=== PATIENT | male | born 1965 | race Two or more races ===

== ENCOUNTER 2018-08-28 10:13 | Inpatient (IN) | payer MEDICAID ==
[~2018-08-28] VITALS: Ht 177.8 cm; Wt 74.8 kg
--- NOTE | 2018-08-28 10:13 | NUR ---
BIB SELF W C/O DIZZINESZS SINCE THIS AM, +NAUSEA, NO VOMITING. TO ER BED 7, HOOKED TO MONITOR, AWAITING MD KINGSTON.
--- NOTE | 2018-08-28 10:38 | NUR ---
DR SMALL AT BEDSIDE
[2018-08-28 10:49] LABS: BASOPHILS % (AUTO) 0.7 % (0.0-2.0); EOSINOPHILS % (AUTO) 2.4 % (0.0-6.0); HEMATOCRIT 44 % (39-51); HEMOGLOBIN 14.8 g/dL (13.5-17.5); LYMPHOCYTES # (AUTO) 1.3 /CMM (0.8-4.8); LYMPHOCYTES % (AUTO) 17.7 % (20.0-44.0); MEAN CORPUSCULAR HGB CONC 33 g/dl (31.0-36.0); MEAN CORPUSCULAR VOLUME 90 fL (80-96); MONOCYTES # (AUTO) 0.7 /CMM (0.1-1.30); MONOCYTES % (AUTO) 8.7 % (2.0-12.0); NEUTROPHILS # (AUTO) 5.3 /CMM (1.8-8.9); NEUTROPHILS % (AUTO) 70.5 % (43.0-81.0); PLATELET COUNT (AUTO) 201 /CMM (150-450); RED BLOOD CELL COUNT(AUTO) 4.94 MIL/uL (4.5-6.0); WHITE BLOOD COUNT (AUTO) 7.5 K/uL (4.3-11.0)
[2018-08-28 10:54] LABS: CALCIUM, SERUM 8.8 mg/dL (8.5-10.1); CREATININE 2.1 mg/dL (0.6-1.3); POTASSIUM 3.9 mmol/L (3.5-5.1)
--- NOTE | 2018-08-28 10:54 | NUR ---
DIRECTOR OF TRAINING AT BEDSIDE
[2018-08-28] MEDS ORDERED: IV NS 0.9% 500 ML BAG IV ONE (11:00)
[2018-08-28 11:07] LABS: ALBUMIN 3.5 g/dL (3.4-5.0); BILIRUBIN,DIRECT 0.1 mg/dL (0.0-0.2); BILIRUBIN,TOTAL 0.5 mg/dL (0.2-1.0); TOTAL PROTEIN, SERUM 7.7 g/dL (6.4-8.2)
--- NOTE | 2018-08-28 11:57 | NUR ---
TELE 120-1
[2018-08-28 12:00] VITALS: BP 160/117
[2018-08-28 12:02] LABS: APPEARANCE,URINE Clear (CLEAR); BILIRUBIN,URINE Negative (NEGATIVE); BLOOD, URINE Negative Ery/uL (NEGATIVE); COLOR,URINE Yellow (YELLOW); KETONES,URINE Negative (NEGATIVE); LEUKOCYTE ESTERASE ,URINE Negative (NEGATIVE); NITRITE, URINE Negative (NEGATIVE); PH,URINE 6.5 (5.0-8.0); PROTEIN,URINE 30 mg/dl (NEGATIVE); UGLUCOSE Negative (NEGATIVE); UROBILINOGEN,URINE 0.2 EU/dL (0.2)
--- NOTE | 2018-08-28 12:04 | NUR ---
Report given to GALI August for garry TELE 120-1
[2018-08-28 12:09] LABS: BACTERIA,URINE None seen /HPF (None Seen); SQUAMOUS EPITHELIAL CELL,UR Rare /HPF (None Seen); WBC,URINE 0-2 /HPF (0-3)
[2018-08-28] MEDS ORDERED: CARV12.52 PO (12:21)
[2018-08-28] MEDS ORDERED: BENA20TA9 PO (12:21)
[2018-08-28] MEDS ORDERED: FURO-145 PO (12:21)
[2018-08-28] MEDS ORDERED: APIX5TAB PO (12:21)
[2018-08-28] MEDS ORDERED: ALLO100T PO (12:21)
[2018-08-28] MEDS ORDERED: ASPI-1169 PO (12:21)
[2018-08-28 13:00] VITALS: BP 160/117
[2018-08-28] MEDS ORDERED: MAG HYDROX/AL HYDROX/SIMETH 30 ML UDC PO PRN (13:30)
[2018-08-28] MEDS ORDERED: Z GUARD REMEDY 2 OZ OINT TP PRN (13:30)
[2018-08-28] MEDS ORDERED: ONDANSETRON HCL/PF 4 MG/2 ML VIAL IVP PRN (13:30)
[2018-08-28] MEDS ORDERED: MAGNESIUM HYDROXIDE 30 ML UDC PO PRN (13:30)
[2018-08-28] MEDS ORDERED: ACETAMINOPHEN 325 MG TABLET PO PRN (13:30)
[2018-08-28] MEDS: FUROSEMIDE 40 MG TABLET PO SCH (13:39)
[2018-08-28] MEDS: BENAZEPRIL HCL 10 MG TABLET PO SCH (13:39)
[2018-08-28] MEDS: CARVEDILOL 12.5 MG TABLET PO SCH ×2 (13:39→17:08)
[2018-08-28 13:45] LABS: PHOSPHORUS 4.4 mg/dL (2.5-4.9)
[2018-08-28] MEDS: HYDROCODONE/APAP 5/325MG 1 EACH TABLET PO PRN ×2 (14:09→20:32)
[2018-08-28 14:16] LABS: THYROID STIMULATING HORMONE 6.734 uIU/mL (0.358-3.74)
[2018-08-28 16:00] VITALS: BP 161/105
[2018-08-28] MEDS: APIXABAN 5 MG TABLET PO SCH (16:47)
--- NOTE | 2018-08-28 16:47 | NUR ---
BASKETBALL SCOUT NOTE PATIENT TRANSFERED FROM THE EMERGENCY DEPARTMENT. ALERT AND ORIENTED X4. IV PATENT AND INTACT. PATIENT NOTED HE HAS AN IMPLANTED DEFIBRILATOR. BED IN LOW POSITION SAFETY MEASURES IN PLACE. BELONGINGS CHECKED BY SUGAR MILL WORKER. MD ORDERED MEDICATION, BLOOD PRESSURE NOTED TO BE HIGH. CONTINUE TO MONITOR.
[2018-08-28 17:00] VITALS: BP 143/94
[2018-08-28] MEDS ORDERED: hydrALAZINE HCL IV 20 MG VIAL IV PRN (18:30)
[2018-08-28 20:00] VITALS: BP 120/79
--- NOTE | 2018-08-28 20:00 | NUR ---
TELE/RN NOTES: RECEIVED PT. IN BED W/ SON BY BEDSIDE. A/O X 4. DENIES ANY C/O CHEST PAIN OR SOB AT PRESENT. ON TELE MONITOR W/ AFLUTTER 70. CONTINENT OF B/B. LFA G 20 PATENT AND INTACT W/ NO S/S OF INFECTION/INFILTRATION NOTED. C/O PAIN W/ PRN MEDS GIVEN W/ GOOD RELIEF. WILL CONTINUE TO MONITOR.
[2018-08-28] MEDS: SIMVASTATIN 40 MG TABLET PO SCH (21:26)
[2018-08-28] MEDS: ZOLPIDEM TARTRATE 5 MG TABLET PO PRN (21:30)
[2018-08-29] VITALS (7 sets, daily range): BP systolic 103–144; BP diastolic 70–94
[2018-08-29 06:47] LABS: BASOPHILS % (AUTO) 0.4 % (0.0-2.0); EOSINOPHILS % (AUTO) 3.1 % (0.0-6.0); HEMATOCRIT 43 % (39-51); HEMOGLOBIN 14.2 g/dL (13.5-17.5); LYMPHOCYTES # (AUTO) 1.9 /CMM (0.8-4.8); LYMPHOCYTES % (AUTO) 30.3 % (20.0-44.0); MEAN CORPUSCULAR HGB CONC 33 g/dl (31.0-36.0); MEAN CORPUSCULAR VOLUME 92 fL (80-96); MONOCYTES # (AUTO) 0.8 /CMM (0.1-1.30); MONOCYTES % (AUTO) 13.4 % (2.0-12.0); NEUTROPHILS # (AUTO) 3.3 /CMM (1.8-8.9); NEUTROPHILS % (AUTO) 52.8 % (43.0-81.0); PLATELET COUNT (AUTO) 206 /CMM (150-450); RED BLOOD CELL COUNT(AUTO) 4.71 MIL/uL (4.5-6.0); WHITE BLOOD COUNT (AUTO) 6.3 K/uL (4.3-11.0)
[2018-08-29 06:59] LABS: ALBUMIN 3.2 g/dL (3.4-5.0); BILIRUBIN,TOTAL 0.3 mg/dL (0.2-1.0); CALCIUM, SERUM 8.6 mg/dL (8.5-10.1); CREATININE 2.1 mg/dL (0.6-1.3); MAGNESIUM 2.1 mg/dL (1.8-2.4); PHOSPHORUS 5.1 mg/dL (2.5-4.9); POTASSIUM 3.9 mmol/L (3.5-5.1); TOTAL PROTEIN, SERUM 7.3 g/dL (6.4-8.2)
[2018-08-29 07:05] LABS: THYROID STIMULATING HORMONE 10.83 uIU/mL (0.358-3.74)
--- NOTE | 2018-08-29 07:30 | NUR ---
TELE/RN NOTES: LAB CALLED W/ TRENDING TROPONIN 0.9666/ 0.550 . REPORT GIVEN TO AM NURSE FOR MACEY.
[2018-08-29] MEDS ORDERED: ASPIRIN EC 81 MG TABLET.DR PO SCH (09:00)
[2018-08-29] MEDS: FUROSEMIDE 40 MG TABLET PO SCH (09:13)
[2018-08-29] MEDS: CARVEDILOL 12.5 MG TABLET PO SCH ×2 (09:14→17:31)
[2018-08-29] MEDS: BENAZEPRIL HCL 10 MG TABLET PO SCH (09:14)
[2018-08-29] MEDS: HYDROCODONE/APAP 5/325MG 1 EACH TABLET PO PRN (09:43)
--- NOTE | 2018-08-29 09:45 | NUR ---
VE TEACHER NOTES DR ORNELAS AWARE OF TROPONIN LEVEL, NO NEW ORDERS MADE AT THIS TIME.
[2018-08-29] MEDS: APIXABAN 5 MG TABLET PO SCH ×2 (10:00→17:12)
--- NOTE | 2018-08-29 10:00 | NUR ---
SEO PROFESSIONAL NOTES SEEN AND EVALUATED WITH DR LEBRON, CLARIFIED ASPIRIN AND ELIQUIS ORDERS SAID MAY ADMINISTER BOTH MEDICATIONS.
--- NOTE | 2018-08-29 19:00 | NUR ---
LICENSED PHYSICAL THERAPY ASSISTANT NOTES PATIENT IN BED ALERT ORIENTED X 4. NO ACUTE DISTRESS NOTED. BREATHING UNLABORED. NO SOB NOTED. DENIED ANY PAIN. IV ACCESS PATENT AND INTACT, NO REDNESS NO SWELLING NOTED. DUE MEDICATIONS GIVEN, NO ASE NOTED. NEEDS ATTENDED AND ANTICIPATED. KEPT CLEAN DRY AND COMFORTABLE. SAFETY MEASURES IN PLACE. CALL LIGHT WITHIN REACH.ENDORSED TO NIGHT NURSE FOR CONTINUITY OF CARE.
[2018-08-29] MEDS: SIMVASTATIN 40 MG TABLET PO SCH (22:07)
[2018-08-29] MEDS: ZOLPIDEM TARTRATE 5 MG TABLET PO PRN (22:22)
[2018-08-30 01:00] VITALS: BP 127/76
--- NOTE | 2018-08-30 06:54 | NUR ---
TELE/RN NOTES: ENDORSED PT. IN BED W/ SON BY BEDSIDE. A/O X 4. DENIES ANY C/O CHEST PAIN OR SOB AT PRESENT. ON TELE MONITOR W/ AFLUTTER 70'S. CONTINENT OF B/B. LFA G 20 PATENT AND INTACT W/ NO S/S OF INFECTION/INFILTRATION NOTED. C/O PAIN W/ PRN MEDS GIVEN W/ GOOD RELIEF. WILL CONTINUE TO MONITOR.
--- NOTE | 2018-08-30 07:20 | NUR ---
RN NOTES RECEIVED PATIENT AWAKE RESTING IN BED COMFORTABLY , ABLE TO MAKE NEEDS KNOWN. RESPIRATIONS EVEN AND UNLABORED, DENIES ANY PAIN OR DISCOMFORT AT THIS TIME. IV ACCESS PATENT AND INTACT NO REDNESS OR INFILTRATION NOTED. KEPT CLEAN DRY AND COMFORTABLE, CALL LIGHT WITHIN EASY REACH, WILL CONTINUE TO MONITOR
[2018-08-30 07:22] LABS: CALCIUM, SERUM 8.6 mg/dL (8.5-10.1); CREATININE 2.2 mg/dL (0.6-1.3); MAGNESIUM 2.3 mg/dL (1.8-2.4); POTASSIUM 3.8 mmol/L (3.5-5.1)
[2018-08-30 07:29] LABS: BASOPHILS # (AUTO) 0.1 /CMM (0.0-0.2); BASOPHILS % (AUTO) 0.8 % (0.0-2.0); EOSINOPHILS % (AUTO) 3.5 % (0.0-6.0); HEMATOCRIT 43 % (39-51); HEMOGLOBIN 14.5 g/dL (13.5-17.5); LYMPHOCYTES # (AUTO) 1.8 /CMM (0.8-4.8); LYMPHOCYTES % (AUTO) 25.1 % (20.0-44.0); MEAN CORPUSCULAR HGB CONC 33 g/dl (31.0-36.0); MEAN CORPUSCULAR VOLUME 91 fL (80-96); NEUTROPHILS # (AUTO) 4.2 /CMM (1.8-8.9); NEUTROPHILS % (AUTO) 57.6 % (43.0-81.0); PLATELET COUNT (AUTO) 212 /CMM (150-450); RED BLOOD CELL COUNT(AUTO) 4.79 MIL/uL (4.5-6.0); WHITE BLOOD COUNT (AUTO) 7.3 K/uL (4.3-11.0)
[2018-08-30 08:00] VITALS: BP 159/77
[2018-08-30] MEDS: CARVEDILOL 12.5 MG TABLET PO SCH ×2 (08:25→17:04)
[2018-08-30] MEDS: FUROSEMIDE 40 MG TABLET PO SCH (08:25)
[2018-08-30] MEDS: BENAZEPRIL HCL 10 MG TABLET PO SCH (08:26)
[2018-08-30] MEDS: APIXABAN 5 MG TABLET PO SCH ×2 (08:27→17:06)
[2018-08-30 09:00] VITALS: BP 159/77
[2018-08-30 10:19] LABS: *SPE A/G RATIO 0.9 (0.7-1.7); *SPE ALBUMIN 3.2 g/dL (2.9-4.4); *SPE ALPHA-1-GLOBULIN 0.2 g/dL (0.0-0.4); *SPE ALPHA-2-GLOBULIN 0.9 g/dL (0.4-1.0); *SPE BETA GLOBULIN 1.3 g/dL (0.7-1.3); *SPE GLOBULIN, TOTAL 3.5 g/dL (2.2-3.9); *SPE M-SPIKE Not Observed g/dL (Not Observed)
[2018-08-30] MEDS ORDERED: SIMV40TA5 PO (10:54)
[2018-08-30] MEDS ORDERED: FURO40TA5 PO (10:54)
[2018-08-30 13:14] LABS: PTH, INTACT 171 pg/mL (15-65)
[2018-08-30 16:00] VITALS: BP 120/76
--- NOTE | 2018-08-30 16:34 | NUR ---
RN NOTES PAGED DR. CHATTERJEE SERVICE AND NOTIFIED DR. ORNELAS OF CT SCAN RESULTS. NO ANSWER FROM DR. CHATTERJEE , DR ORNELAS WILL NOTIFY RN IF OKAY TO DC PT
[2018-08-30 17:00] VITALS: BP 120/76
[2018-08-30 17:04] VITALS: BP 120/76
[2018-08-30] MEDS: HYDROCODONE/APAP 5/325MG 1 EACH TABLET PO PRN (17:05)
--- NOTE | 2018-08-30 17:34 | NUR ---
RN NOTES PER DR. ORNELAS PT MAY BE DISCHARGED WITH IMAGES OF SCAN, WILL CONTINUE TO ASSIST WITH DC PROCESS
--- NOTE | 2018-08-30 18:59 | NUR ---
RN NOTES PATIENT AWAKE RESTING IN BED COMFORTABLY , ABLE TO MAKE NEEDS KNOWN. RESPIRATIONS EVEN AND UNLABORED, DENIES ANY PAIN OR DISCOMFORT AT THIS TIME. IV ACCESS REMOVED WITH NO ASE NOTED PATIENT GOING HOME AND DISCHARGED. ID BAND REMOVED, NO PICTURES OF SKIN NEEDED. KEPT CLEAN DRY AND COMFORTABLE, CALL LIGHT WITHIN EASY REACH, WILL CONTINUE TO MONITOR. ALL DISCHARGE INSTRUCTIONS AND PAPERWORK COMPLETED WITH VERBAL UNDERSTANDING NOTED. PT AWAITING FAMILY TO PICK HIM UP WILL ENDORSE TO NEXT SHIFT FOR CONTINUITY OF CARE AND ASSISTANCE WITH DISCHARGE PROCESS
--- NOTE | 2018-08-30 19:26 | NUR ---
MS RN NOTES PT D/C STABLE WITH DAUGHTER VIA PRIVATE CAR ACCOMPANIED BY RN.
== END 2018-08-30 19:26 | disposition home or self-care (01) | DRG 469 ==
LOC: ER 10:14 → TELE1 12:16 → MEDSG1 08-29 22:00
PROVIDERS: ADMIT Student in an Organized Health Care Education/Training Program; ATTEND Student in an Organized Health Care Education/Training Program
DX: N17.0 Acute kidney failure with tubular necrosis (principal); I21.A1 Myocardial infarction type 2; I42.9 Cardiomyopathy, unspecified; I13.0 Hypertensive heart and chronic kidney disease with heart failure and stage 1 through stage 4 chronic kidney disease, or unspecified chronic kidney disease; I48.91 Unspecified atrial fibrillation; Z86.73 Personal history of transient ischemic attack (TIA), and cerebral infarction without residual deficits; E78.5 Hyperlipidemia, unspecified; I25.10 Atherosclerotic heart disease of native coronary artery without angina pectoris; E03.9 Hypothyroidism, unspecified; I50.22 Chronic systolic (congestive) heart failure; Z87.442 Personal history of urinary calculi; Z91.14 Patient's other noncompliance with medication regimen; N28.1 Cyst of kidney, acquired; N21.0 Calculus in bladder; F17.210 Nicotine dependence, cigarettes, uncomplicated; Z79.01 Long term (current) use of anticoagulants; Z95.810 Presence of automatic (implantable) cardiac defibrillator; N18.9 Chronic kidney disease, unspecified; Z82.49 Family history of ischemic heart disease and other diseases of the circulatory system; N13.30 Unspecified hydronephrosis; N20.1 Calculus of ureter
CPT/HCPCS: 36415; 71045-TC; 76770-TC; 80048-TC; 80053-TC; 80061-TC; 80076-TC; 81000-TC; 82550-TC; 83735-TC; 83880; 83970; 84100-TC; 84155; 84165; 84439-TC; 84443-TC; 84484-TC; 85025-TC; 85730-TC; 87081-TC; 93307-TC; A4349; G0378; J7040

== ENCOUNTER 2019-01-08 15:12 | Inpatient (IN) | payer MEDICAID ==
[~2019-01-08] VITALS: Ht 180.3 cm; Wt 68.0 kg
[~2019-01-08 15:12] MED LIST: ALLO100T PO; APIX5TAB PO; APIXABAN 5 MG TABLET PO ONE; ASPI-1169 PO; BENA20TA9 PO; CARV12.52 PO; FURO-145 PO; FURO40TA5 PO; SIMV40TA5 PO
--- NOTE | 2019-01-08 16:30 | NUR ---
WORSENING L FOOT PAIN/SWELLING SINCE SUNDAY. CONCERN ABOUT BLOOD CLOT RAN OUT OF ELEQUIS SINCE SUNDAY. PT AAOX4, VSS. RR EVEN & UNLABORED. DENIES CP, SOB, DIZZINESS, N/V AT THIS TIME. AWAITING EVAL BY ERMD/PA & WILL CONT TO MONITOR.
[2019-01-08 17:47] LABS: BASOPHILS % (AUTO) 0.4 % (0.0-2.0); EOSINOPHILS % (AUTO) 0.7 % (0.0-6.0); HEMATOCRIT 45 % (39-51); HEMOGLOBIN 14.8 g/dL (13.5-17.5); LYMPHOCYTES # (AUTO) 0.8 /CMM (0.8-4.8); LYMPHOCYTES % (AUTO) 9.2 % (20.0-44.0); MEAN CORPUSCULAR HGB CONC 33 g/dl (31.0-36.0); MEAN CORPUSCULAR VOLUME 90 fL (80-96); MONOCYTES # (AUTO) 0.7 /CMM (0.1-1.30); MONOCYTES % (AUTO) 8.3 % (2.0-12.0); NEUTROPHILS % (AUTO) 81.4 % (43.0-81.0); PLATELET COUNT (AUTO) 345 /CMM (150-450); RED BLOOD CELL COUNT(AUTO) 5.02 MIL/uL (4.5-6.0); WHITE BLOOD COUNT (AUTO) 8.5 K/uL (4.3-11.0)
[2019-01-08 17:57] LABS: CALCIUM, SERUM 9.5 mg/dL (8.5-10.1); CREATININE 1.9 mg/dL (0.6-1.3); POTASSIUM 3.5 mmol/L (3.5-5.1)
[2019-01-08 18:10] LABS: ALBUMIN 2.9 g/dL (3.4-5.0); BILIRUBIN,DIRECT 0.3 mg/dL (0.0-0.2); TOTAL PROTEIN, SERUM 8.6 g/dL (6.4-8.2)
[2019-01-08] MEDS ORDERED: MORPHINE SULFATE INJ 2 MG/ML DISP.SYRIN IV ONE (19:00)
[2019-01-08] MEDS ORDERED: ONDANSETRON HCL/PF 4 MG/2 ML VIAL IVP ONE (19:00)
[2019-01-08] MEDS ORDERED: AZTREONAM 1 G in IV NS 0.9% 100 ML IV ONE (19:00)
[2019-01-08] MEDS ORDERED: VANCOMYCIN 1 GM in IV D5W 250 ML IV ONE (19:00)
[2019-01-08] MEDS ORDERED: ONDANSETRON HCL/PF 4 MG/2 ML VIAL ONE (19:23)
[2019-01-08] MEDS ORDERED: MORPHINE SULFATE INJ 4 MG/ML DISP.SYRIN ONE (19:23)
--- NOTE | 2019-01-08 19:28 | NUR ---
MEDICATED FOR LT FOOT PAIN, PER ERIC BENNETT'S ORDER. DENIES CP, SOB, N/V AT THIS TIME. PLACED ON DRIVER/REFUSE COLLECTOR, SR W/ NO ECTOPY NOTED. WILL CONT TO MONITOR.
--- NOTE | 2019-01-08 19:48 | NUR ---
CALLED [facility]ERON TORRES TELE BED
--- NOTE | 2019-01-08 19:59 | NUR ---
BED ASSIGNMENT: 325-2 TELE
--- NOTE | 2019-01-08 20:13 | NUR ---
REPORT CALLED TO TUBE REBUILDERGALI ANNE. WILL TRANSPORT PT VIA ACLS PROTOCOL.
[2019-01-08] MEDS ORDERED: Z GUARD REMEDY 2 OZ OINT TP PRN (20:30)
[2019-01-08] MEDS ORDERED: MAGNESIUM HYDROXIDE 30 ML UDC PO PRN (20:30)
[2019-01-08] MEDS ORDERED: ONDANSETRON HCL/PF 4 MG/2 ML VIAL IVP PRN (20:30)
[2019-01-08] MEDS ORDERED: MAG HYDROX/AL HYDROX/SIMETH 30 ML UDC PO PRN (20:30)
[2019-01-08] MEDS ORDERED: ACETAMINOPHEN 325 MG TABLET PO PRN (20:30)
[2019-01-08 20:35] VITALS: BP 144/101
--- NOTE | 2019-01-08 20:35 | NUR ---
RECEIVED PATIENT FROM ER FOR LEFT FOOT CELLULITIS. AO X 3, ABLE TO MAKE NEEDS KNOWN. NO ACUTE DISTRESS NOTED. 5/10 LEFT FOOT PAIN. TELE READING AFIB HR 99. IV SITE PATENT, INTACT; FLUSHED. SAFETY REMINDERS GIVEN. ON LOW BED WITH BILATERAL UPPER SIDE RAILS UP. CALL JUNG WITHIN EASY REACH. WILL CONTINUE TO MONITOR.
[2019-01-08 20:45] VITALS: BP 144/101
[2019-01-08] MEDS: HYDROCODONE/APAP 5/325MG 1 EACH TABLET PO PRN (22:12)
--- NOTE | 2019-01-08 23:05 | NUR ---
PER DR. NOLAN, ORDER ELIQUIS 5 MG PO X 1 TONIGHT; NOTED AND CARRIED OUT.
--- NOTE | 2019-01-08 23:15 | NUR ---
DR. NOLAN SAW PATIENT; GAVE ORDER FOR MORPHINE 2 MG IV Q 4 HOURS PRN; NOTED AND CARRIED OUT. PATIENT MADE AWARE.
[2019-01-08] MEDS ORDERED: APIXABAN 5 MG TABLET PO ONE (23:45)
[2019-01-09] VITALS (7 sets, daily range): BP systolic 101–152; BP diastolic 61–83
[2019-01-09] MEDS ORDERED: APIXABAN 5 MG TABLET ONE (00:20)
[2019-01-09] MEDS: MORPHINE SULFATE INJ 2 MG/ML DISP.SYRIN IV PRN ×6 (00:21→22:22)
[2019-01-09] MEDS ORDERED: CLINDAMYCIN IV RTU IN D5W 900 MG/50 ML PIGGYBACK IV SCH ×2 (01:00→13:00)
[2019-01-09] MEDS ORDERED: COLCHICINE 0.6 MG TABLET PO PRN (01:00)
[2019-01-09] MEDS ORDERED: CLINDAMYCIN 900 MG/6 ML VIAL ONE (01:40)
[2019-01-09] MEDS: FUROSEMIDE 40 MG/4 ML VIAL IV SCH ×2 (01:46→09:13)
--- NOTE | 2019-01-09 04:57 | NUR ---
ELIQUIS AT 01/08 0000 WAS REORDERED BY PHARMACY FOR 01/08 AT 2345. ELIQUIS 01/08 2345 WAS GIVEN. ELIQUIS 01/08 0000 IS A DUPLICATE; NOT GIVEN.
--- NOTE | 2019-01-09 06:00 | NUR ---
PATIENT ASLEEP, EASILY AROUSABLE. RESPIRATIONS EVEN. NO SIGNS OF PAIN NOTED. DUE MEDS GIVEN WITH NO ASE NOTED. NEEDS ATTENDED. KEPT CLEAN, DRY, AND COMFORTABLE. SAFETY PRECAUTIONS AND COMFORT MEASURES IN PLACE. WILL GIVE REPORT TO TO DAY SHIFT FOR CONTINUITY OF CARE.
[2019-01-09 06:53] LABS: BASOPHILS % (AUTO) 0.6 % (0.0-2.0); EOSINOPHILS % (AUTO) 2.9 % (0.0-6.0); HEMATOCRIT 38 % (39-51); HEMOGLOBIN 12.8 g/dL (13.5-17.5); LYMPHOCYTES # (AUTO) 1.1 /CMM (0.8-4.8); LYMPHOCYTES % (AUTO) 16.8 % (20.0-44.0); MEAN CORPUSCULAR HGB CONC 34 g/dl (31.0-36.0); MEAN CORPUSCULAR VOLUME 88 fL (80-96); MONOCYTES # (AUTO) 0.9 /CMM (0.1-1.30); MONOCYTES % (AUTO) 13.4 % (2.0-12.0); NEUTROPHILS # (AUTO) 4.4 /CMM (1.8-8.9); NEUTROPHILS % (AUTO) 66.3 % (43.0-81.0); PLATELET COUNT (AUTO) 314 /CMM (150-450); RED BLOOD CELL COUNT(AUTO) 4.32 MIL/uL (4.5-6.0); WHITE BLOOD COUNT (AUTO) 6.7 K/uL (4.3-11.0)
[2019-01-09 07:13] LABS: CALCIUM, SERUM 8.4 mg/dL (8.5-10.1); CREATININE 1.8 mg/dL (0.6-1.3); MAGNESIUM 2.1 mg/dL (1.8-2.4); PHOSPHORUS 4.3 mg/dL (2.5-4.9); POTASSIUM 3.6 mmol/L (3.5-5.1)
[2019-01-09] MEDS: HYDROCODONE/APAP 5/325MG 1 EACH TABLET PO PRN ×3 (08:37→19:56)
[2019-01-09] MEDS: ALLOPURINOL 100 MG TABLET PO SCH (09:13)
[2019-01-09] MEDS: ASPIRIN 81 MG TAB.CHEW PO SCH (09:13)
[2019-01-09] MEDS: APIXABAN 5 MG TABLET PO SCH ×2 (09:14→18:19)
[2019-01-09] MEDS: CARVEDILOL 12.5 MG TABLET PO SCH ×2 (09:20→17:00)
--- NOTE | 2019-01-09 10:30 | NUR ---
DR. MCKEON AND DR. HDZ IN TO SEE PT.DR. HDZ NOTED SWELLING LT. KNEE.PT. STATES MORE PAIN TODAY.
[2019-01-09] MEDS: CLINDAMYCIN 900 MG in IV D5W 50 ML IV SCH ×2 (14:11→21:37)
[2019-01-09] MEDS: BENAZEPRIL HCL 20 MG TABLET PO SCH (14:32)
--- NOTE | 2019-01-09 15:56 | NUR ---
THUS FAR PT HAS HAD 2 NORCO TABS AND 2 MORPHINE INJECTIONS,FOR LUPILLO. FOOT PAIN AND LT. KNEE PAIN.
[2019-01-09] MEDS: INDOMETHACIN 25 MG CAPSULE PO SCH (18:19)
--- NOTE | 2019-01-09 18:30 | NUR ---
MEDICATED AGAIN WITH MORPHINE.
--- NOTE | 2019-01-09 19:30 | NUR ---
RECEIVED PATIENT IN BED AWAKE. AO X 3, ABLE TO MAKE NEEDS KNOWN. NO ACUTE DISTRESS NOTED. MONITORED FOR PAIN. IV SITE PATENT, INTACT; FLUSHED. SAFETY REMINDERS GIVEN. ON LOW BED WITH BILATERAL UPPER SIDE RAILS UP. CALL JUNG WITHIN EASY REACH. WILL CONTINUE TO MONITOR.
--- NOTE | 2019-01-09 20:55 | NUR ---
Met with patient at bedside. States he lives with roommates. He is usually ambulatory and independent with adl's but recently he is using a walker due to leg pain. Denies having DME, he is requesting a walker to aid with ambulation when discharge. His pcp is at [facility]. Has a friend that will provide ride when discharge. Addendum: 01/09/19 at 2054 by CHIDI ZEPEDA RN Amended: Links added.
[2019-01-10] MEDS: ZOLPIDEM TARTRATE 5 MG TABLET PO PRN ×2 (01:14→21:16)
[2019-01-10] MEDS: CLINDAMYCIN 900 MG in IV D5W 50 ML IV SCH ×3 (05:34→20:57)
--- NOTE | 2019-01-10 06:25 | NUR ---
PATIENT ASLEEP, EASILY AROUSABLE. RESPIRATIONS EVEN. NO SIGNS OF PAIN NOTED. SLEPT WELL AFTER AMBIEN ADMINISTRATION. DUE MEDS GIVEN WITH NO ASE NOTED. NEEDS ATTENDED. SAFETY PRECAUTIONS AND COMFORT MEASURES IN PLACE. WILL GIVE REPORT TO TO DAY SHIFT FOR CONTINUITY OF CARE.
[2019-01-10 07:12] LABS: BASOPHILS % (AUTO) 0.7 % (0.0-2.0); EOSINOPHILS % (AUTO) 5.9 % (0.0-6.0); HEMATOCRIT 35 % (39-51); HEMOGLOBIN 11.7 g/dL (13.5-17.5); LYMPHOCYTES # (AUTO) 1.2 /CMM (0.8-4.8); MEAN CORPUSCULAR HGB CONC 33 g/dl (31.0-36.0); MEAN CORPUSCULAR VOLUME 89 fL (80-96); MONOCYTES # (AUTO) 0.6 /CMM (0.1-1.30); MONOCYTES % (AUTO) 11.7 % (2.0-12.0); NEUTROPHILS # (AUTO) 2.8 /CMM (1.8-8.9); NEUTROPHILS % (AUTO) 56.7 % (43.0-81.0); PLATELET COUNT (AUTO) 328 /CMM (150-450); RED BLOOD CELL COUNT(AUTO) 3.93 MIL/uL (4.5-6.0); WHITE BLOOD COUNT (AUTO) 4.9 K/uL (4.3-11.0)
[2019-01-10 07:23] LABS: ALBUMIN 2.1 g/dL (3.4-5.0); BILIRUBIN,TOTAL 0.3 mg/dL (0.2-1.0); CALCIUM, SERUM 8.5 mg/dL (8.5-10.1); CREATININE 2.1 mg/dL (0.6-1.3); MAGNESIUM 2.2 mg/dL (1.8-2.4); PHOSPHORUS 5.2 mg/dL (2.5-4.9); POTASSIUM 3.3 mmol/L (3.5-5.1); TOTAL PROTEIN, SERUM 6.8 g/dL (6.4-8.2)
--- NOTE | 2019-01-10 07:27 | NUR ---
RN MS OPENING NOTES Received patient on room air, no sob noted, patient denies pain at this time. Patient remains a/o x4. NO IVF at this time, bed at the lowest setting, call light within reach.
[2019-01-10 08:00] VITALS: BP 115/75
[2019-01-10 08:10] LABS: CREATININE, URINE 152.6 MG/DL (30.0-125.0)
[2019-01-10 08:16] LABS: APPEARANCE,URINE CLEAR (CLEAR); BILIRUBIN,URINE NEGATIVE (NEGATIVE); BLOOD, URINE 1+ Ery/uL (NEGATIVE); COLOR,URINE DARK YELLO (YELLOW); KETONES,URINE NEGATIVE (NEGATIVE); LEUKOCYTE ESTERASE ,URINE NEGATIVE (NEGATIVE); NITRITE, URINE NEGATIVE (NEGATIVE); PH,URINE 5.5 (5.0-8.0); PROTEIN,URINE 2+ mg/dl (NEGATIVE); UGLUCOSE NEGATIVE (NEGATIVE)
[2019-01-10 08:34] LABS: URINE TOTAL PROTEIN 98.7 mg/dL (0-11.9)
[2019-01-10] MEDS: FUROSEMIDE 40 MG/4 ML VIAL IV SCH (08:48)
[2019-01-10] MEDS: ALLOPURINOL 100 MG TABLET PO SCH (08:49)
[2019-01-10] MEDS: INDOMETHACIN 25 MG CAPSULE PO SCH (08:49)
[2019-01-10] MEDS: CARVEDILOL 12.5 MG TABLET PO SCH ×2 (08:49→16:21)
[2019-01-10] MEDS: ASPIRIN 81 MG TAB.CHEW PO SCH (08:49)
[2019-01-10] MEDS: BENAZEPRIL HCL 20 MG TABLET PO SCH (08:49)
[2019-01-10] MEDS: APIXABAN 5 MG TABLET PO SCH ×2 (08:53→16:22)
[2019-01-10] MEDS: MORPHINE SULFATE INJ 2 MG/ML DISP.SYRIN IV PRN ×5 (08:57→23:27)
[2019-01-10] MEDS ORDERED: POTASSIUM CL. PREMIX PERIPHER. 50 ML IV SCH (09:36)
[2019-01-10 10:01] LABS: BACTERIA,URINE None seen /HPF (None Seen); SQUAMOUS EPITHELIAL CELL,UR Few /HPF (None Seen); WBC,URINE 0-2 /HPF (0-3)
[2019-01-10 10:14] LABS: EOSINOPHIL,URINE None Seen
[2019-01-10 16:00] VITALS: BP 116/65
--- NOTE | 2019-01-10 18:53 | NUR ---
RN MS CLOSING NOTES Patient remains on room air, no sob noted, patient denies pain at this time. Patient stated that both left and right foot are a lot less swollen and less painful at this time compared to the past few days. Patient's bed at the lowest setting, call light within reach, will give report to NOC RN for MACEY bedside.
--- NOTE | 2019-01-10 19:31 | NUR ---
MS RN RECEIVE PT IN BED A/O X 3, STABLE, RESPIRATIONS EVEN AND UNLABORED, SAFETY MEASURES IN PLACE. WILL CONTINUE TO MONITOR
[2019-01-10 20:00] VITALS: BP 110/72
[2019-01-11] MEDS: CLINDAMYCIN 900 MG in IV D5W 50 ML IV SCH ×3 (05:08→20:11)
--- NOTE | 2019-01-11 06:36 | NUR ---
MS RN ASLEEP AND EASILY AWAKEN, RESPIRATIONS EVEN AND UNLABORED. STABLE, SLEPT WELL THROUGHOUT THE NIGHT. KEPT CLEAN AND DRY AND COMFORTABLE. NEEDS ATTENDED AND ANTICIPATED. NURSING CARE RENDERED, SAFETY MEASURES AT ALL TIMES. ENDORSE TO THE NEXT SHIFT.
[2019-01-11 06:48] LABS: BASOPHILS % (AUTO) 0.6 % (0.0-2.0); EOSINOPHILS % (AUTO) 3.4 % (0.0-6.0); HEMATOCRIT 34 % (39-51); HEMOGLOBIN 11.4 g/dL (13.5-17.5); LYMPHOCYTES # (AUTO) 1.1 /CMM (0.8-4.8); LYMPHOCYTES % (AUTO) 14.9 % (20.0-44.0); MEAN CORPUSCULAR HGB CONC 34 g/dl (31.0-36.0); MEAN CORPUSCULAR VOLUME 89 fL (80-96); MONOCYTES # (AUTO) 0.7 /CMM (0.1-1.30); MONOCYTES % (AUTO) 9.7 % (2.0-12.0); NEUTROPHILS # (AUTO) 5.1 /CMM (1.8-8.9); NEUTROPHILS % (AUTO) 71.4 % (43.0-81.0); PLATELET COUNT (AUTO) 345 /CMM (150-450); RED BLOOD CELL COUNT(AUTO) 3.85 MIL/uL (4.5-6.0); WHITE BLOOD COUNT (AUTO) 7.1 K/uL (4.3-11.0)
[2019-01-11 06:50] LABS: CALCIUM, SERUM 8.4 mg/dL (8.5-10.1); POTASSIUM 3.6 mmol/L (3.5-5.1)
--- NOTE | 2019-01-11 07:33 | NUR ---
RN OPENING NOTE PT WAS RECEIVED IN BED AT LOWEST AND LOCKED POSITION WITH SIDE RAILS UPX2, A/OX3 BREATHING EVEN AND UNLABORED ON RA WITH NO CURRENT S/S OF PAIN OR DISTRESS NOTED, IV IS PATENT AND INTACT, SAFETY PRECAUTIONS IN PLACE, CALL LIGHT WITHIN REACH, WILL MONITOR PT ACCORDINGLY
[2019-01-11 08:00] VITALS: BP 121/77
[2019-01-11] MEDS: ASPIRIN 81 MG TAB.CHEW PO SCH (08:21)
[2019-01-11] MEDS: ALLOPURINOL 100 MG TABLET PO SCH (08:21)
[2019-01-11] MEDS: BENAZEPRIL HCL 20 MG TABLET PO SCH (08:21)
[2019-01-11] MEDS: FUROSEMIDE 40 MG/4 ML VIAL IV SCH (08:21)
[2019-01-11] MEDS: CARVEDILOL 12.5 MG TABLET PO SCH ×2 (08:21→16:10)
[2019-01-11] MEDS: APIXABAN 5 MG TABLET PO SCH ×2 (08:23→16:10)
[2019-01-11] MEDS: MORPHINE SULFATE INJ 2 MG/ML DISP.SYRIN IV PRN ×4 (08:48→23:29)
[2019-01-11 12:06] LABS: PTH, INTACT 71 pg/mL (15-65)
[2019-01-11] MEDS: HYDROCODONE/APAP 5/325MG 1 EACH TABLET PO PRN ×3 (12:09→20:22)
[2019-01-11 16:00] VITALS: BP 116/74
--- NOTE | 2019-01-11 18:41 | NUR ---
RN CLOSING NOTE PT IN BED AT LOWEST AND LOCKED POSITION WITH SIDE RAILS UPX2, A/OX3 BREATHING EVEN AND UNLABORED ON RA WITH NO S/S OF ANY DISTRESS, CURRENT COMPLAINT OF PAIN IN BLE AND RIGHT ELBOW WITH MORPHINE JUST GIVEN, IV IS PATENT AND INTACT, SAFETY PRECAUTIONS IN PLACE, CALL LIGHT WITHIN REACH, ALL NEEDS ATTENDED TO, WILL ENDORSE TO NIGHT RN FOR MACEY.
--- NOTE | 2019-01-11 19:24 | NUR ---
MS RN RECEIVE PT AWAKE WATCHING TV A/O X 3, STABLE, RESPIRATIONS EVEN AND UNLABORED, SAFETY MEASURES IN PLACE. WILL CONTINUE TO MONITOR
[2019-01-11 20:00] VITALS: BP 105/64
[2019-01-12] MEDS: CLINDAMYCIN 900 MG in IV D5W 50 ML IV SCH ×3 (05:50→20:58)
--- NOTE | 2019-01-12 06:28 | NUR ---
MS RN SLEPT WELL THROUGHOUT THE NIGHT. NOT APPARENT DISTRESS, AM CARE RENDERED. PAIN MEDICATED WITH PRN PAIN MEDICATION WITH RELIEF. KEPT CLEAN AND DRY AND COMFORTABLE. NEEDS ATTENDED AND ANTICIPATED. SAFETY MEASURES AT ALL TIMES. ENDORSE TO THE NEXT SHIFT.
[2019-01-12 06:32] LABS: BASOPHILS # (AUTO) 0.1 /CMM (0.0-0.2); BASOPHILS % (AUTO) 0.8 % (0.0-2.0); EOSINOPHILS % (AUTO) 4.7 % (0.0-6.0); HEMATOCRIT 35 % (39-51); HEMOGLOBIN 11.6 g/dL (13.5-17.5); LYMPHOCYTES # (AUTO) 1.1 /CMM (0.8-4.8); MEAN CORPUSCULAR HGB CONC 33 g/dl (31.0-36.0); MEAN CORPUSCULAR VOLUME 89 fL (80-96); MONOCYTES # (AUTO) 0.9 /CMM (0.1-1.30); MONOCYTES % (AUTO) 12.9 % (2.0-12.0); NEUTROPHILS # (AUTO) 4.6 /CMM (1.8-8.9); NEUTROPHILS % (AUTO) 65.6 % (43.0-81.0); PLATELET COUNT (AUTO) 382 /CMM (150-450); RED BLOOD CELL COUNT(AUTO) 3.93 MIL/uL (4.5-6.0)
[2019-01-12 07:06] LABS: CALCIUM, SERUM 8.7 mg/dL (8.5-10.1); CREATININE 1.7 mg/dL (0.6-1.3); POTASSIUM 3.7 mmol/L (3.5-5.1)
--- NOTE | 2019-01-12 07:25 | NUR ---
RN OPENING NOTE PT WAS RECEIVED IN BED AT LOWEST AND LOCKED POSITION WITH SIDE RAILS UPX2, A/OX3 BREATHING EVEN AND UNLABORED ON RA WITH NO CURRENT S/S OF DISTRESS NOTED, CURRENTLY COMPLAINS OF PAIN IN THE RIGHT ELBOW, IV IS PATENT AND INTACT, SAFETY PRECAUTIONS IN PLACE, CALL LIGHT WITHIN REACH, WILL MONITOR PT ACCORDINGLY
[2019-01-12 08:00] VITALS: BP 127/68
[2019-01-12] MEDS: ASPIRIN 81 MG TAB.CHEW PO SCH (08:18)
[2019-01-12] MEDS: CARVEDILOL 12.5 MG TABLET PO SCH ×2 (08:19→16:36)
[2019-01-12] MEDS: APIXABAN 5 MG TABLET PO SCH ×2 (08:19→16:36)
[2019-01-12] MEDS: ALLOPURINOL 100 MG TABLET PO SCH (08:19)
[2019-01-12] MEDS: BENAZEPRIL HCL 20 MG TABLET PO SCH (08:20)
[2019-01-12] MEDS: MORPHINE SULFATE INJ 2 MG/ML DISP.SYRIN IV PRN ×4 (08:21→20:59)
[2019-01-12] MEDS: FUROSEMIDE 40 MG/4 ML VIAL IV SCH (08:21)
[2019-01-12] MEDS: HYDROCODONE/APAP 5/325MG 1 EACH TABLET PO PRN ×4 (10:13→23:37)
[2019-01-12 16:00] VITALS: BP 115/79
--- NOTE | 2019-01-12 18:07 | NUR ---
RN CLOSING NOTE PT IN BED AT LOWEST AND LOCKED POSITION WITH SIDE RAILS UPX2, A/OX3 BREATHING EVEN AND UNLABORED ON RA WITH NO CURRENT S/S OF ANY DISTRESS OR PAIN, IV IS PATENT AND INTACT, SAFETY PRECAUTIONS IN PLACE, CALL LIGHT WITHIN REACH, ALL NEEDS ATTENDED TO, WILL ENDORSE TO NIGHT RN FOR MACEY.
--- NOTE | 2019-01-12 19:22 | NUR ---
MS RN OPENING NOTES: PT COMPLAINING OF 10/10 R ELBOW AND BILATERAL FEET PAIN. PT WAS ADMINISTERED NORCO 5 PO. PT PREFERS TO HAVE THE MORPHINE MEDICATION BUT EXPLAINED TO HIM THAT IT IS NOT DUE YET.
[2019-01-12 20:00] VITALS: BP 104/74
[2019-01-13] MEDS: MORPHINE SULFATE INJ 2 MG/ML DISP.SYRIN IV PRN ×4 (00:59→16:04)
[2019-01-13] MEDS: CLINDAMYCIN 900 MG in IV D5W 50 ML IV SCH ×2 (04:10→12:27)
[2019-01-13 05:46] VITALS: BP 126/84
[2019-01-13 06:48] LABS: CALCIUM, SERUM 8.8 mg/dL (8.5-10.1); CREATININE 1.9 mg/dL (0.6-1.3); POTASSIUM 4.1 mmol/L (3.5-5.1)
--- NOTE | 2019-01-13 06:48 | NUR ---
MS RN CLOSING NOTES: ALL NEEDS WERE ATTENDED AND ANTICIPATED FOR. PT RESTING IN BED COMFORTABLY AT THIS TIME. IV REMAINS INTACT. CURRENTLY H/L. PAIN HAS BEEN MANAGED WITH NORCO 5 PO AND MORPHINE 2MG IV. BILATERAL FEET LESS SWOLLEN AND ELEVATED WITH PILLOW. BED KEPT IN LOW, LOCKED POSITION, AND SIDE RAILS X 2UP. WILL ENDORSE TO AM NURSE FOR MACEY.
--- NOTE | 2019-01-13 07:00 | NUR ---
MS RN NOTES: PT ADMINISTERED MORPHINE 2MG IV FOR 10/10 L FOOT AND R ELBOW PAIN. WILL CONTINUE TO MONITOR.
--- NOTE | 2019-01-13 07:38 | NUR ---
MS RN OPENING NOTES: RECEIVED PATIENT IN ROOM RESTING COMFORTABLY. A/O X4. ON ROOM AIR, TOLERATING WELL. IV ACCESS ON LEFT FA #20 PATENT AND INTACT, CURRENTLY H/L. NO SOB NOTED. NOT IN ANY DISTRESS. NO COMPLAINTS OF PAIN AT THIS TIME. BED KEPT IN LOW, LOCKED POSITION, AND SIDE RAILS X 2UP. WILL CONTINUE TO MONITOR.
[2019-01-13 08:00] VITALS: BP 136/87
[2019-01-13] MEDS: ASPIRIN 81 MG TAB.CHEW PO SCH (08:38)
[2019-01-13] MEDS: ALLOPURINOL 100 MG TABLET PO SCH (08:38)
[2019-01-13] MEDS: APIXABAN 5 MG TABLET PO SCH ×2 (08:40→17:27)
[2019-01-13] MEDS: FUROSEMIDE 40 MG/4 ML VIAL IV SCH (08:45)
[2019-01-13] MEDS: CARVEDILOL 12.5 MG TABLET PO SCH ×2 (08:52→17:28)
[2019-01-13] MEDS: BENAZEPRIL HCL 20 MG TABLET PO SCH (08:52)
[2019-01-13 17:28] VITALS: BP 143/69
[2019-01-13] MEDS: HYDROCODONE/APAP 5/325MG 1 EACH TABLET PO PRN (17:42)
--- NOTE | 2019-01-13 18:07 | NUR ---
MS ANNUAL GIVING DIRECTOR NOTES PATIENT DISCHARGED TO HOME IN STABLE CONDITION. A/O X 4. ABLE TO MAKE NEEDS KNOWN. V/S TAKEN, STABLE AND RECORDED. PATIENT'S IV ACCESS REMOVED AND APPLIED PRESSURE DRESSING. SKIN INTACT. NAME ARM BAND REMOVED. ALL BELONGINGS CHECKED AND SIGNED. HEALTH TEACHINGS/DISCHARGED INSTRUCTIONS GIVEN AND VERBALIZED UNDERSTANDING. PATIENT LEFT UNIT WITH LANINA(FRIEND) VIA WHEELCHAIR AT 1800 WITH NO ACUTE DISTRESS NOTED. CHARGE NURSE AWARE OF DISCHARGED.
[2019-01-14 06:07] LABS: *SPE A/G RATIO 0.6 (0.7-1.7); *SPE ALBUMIN 2.1 g/dL (2.9-4.4); *SPE ALPHA-1-GLOBULIN 0.5 g/dL (0.0-0.4); *SPE ALPHA-2-GLOBULIN 1.3 g/dL (0.4-1.0); *SPE BETA GLOBULIN 1.3 g/dL (0.7-1.3); *SPE GLOBULIN, TOTAL 3.8 g/dL (2.2-3.9); *SPE M-SPIKE Not Observed g/dL (Not Observed); *SPEGAMMA GLOBULIN 0.7 g/dL (0.4-1.8)
== END 2019-01-13 18:15 | disposition home or self-care (01) | DRG 383 ==
LOC: ER 15:12 → TELE 20:01 → MED 01-09 12:28
PROVIDERS: ADMIT Internal Medicine
DX: L03.116 Cellulitis of left lower limb (principal); I21.A1 Myocardial infarction type 2; N17.0 Acute kidney failure with tubular necrosis; E43 Unspecified severe protein-calorie malnutrition; I50.23 Acute on chronic systolic (congestive) heart failure; I42.9 Cardiomyopathy, unspecified; E88.09 Other disorders of plasma-protein metabolism, not elsewhere classified; I48.91 Unspecified atrial fibrillation; E87.1 Hypo-osmolality and hyponatremia; I13.0 Hypertensive heart and chronic kidney disease with heart failure and stage 1 through stage 4 chronic kidney disease, or unspecified chronic kidney disease; N18.9 Chronic kidney disease, unspecified; M10.9 Gout, unspecified; Z95.810 Presence of automatic (implantable) cardiac defibrillator; Z86.73 Personal history of transient ischemic attack (TIA), and cerebral infarction without residual deficits; Z87.442 Personal history of urinary calculi; Z68.20 Body mass index [BMI] 20.0-20.9, adult; I25.10 Atherosclerotic heart disease of native coronary artery without angina pectoris; F17.210 Nicotine dependence, cigarettes, uncomplicated; N20.0 Calculus of kidney; Z79.01 Long term (current) use of anticoagulants; G62.9 Polyneuropathy, unspecified
CPT/HCPCS: 36415; 71045-TC; 76770-TC; 80048-TC; 80053-TC; 80076-TC; 81000-TC; 82550-TC; 82570-TC; 83605-TC; 83690-TC; 83735-TC; 83880; 83970; 84100-TC; 84155; 84155-TC; 84165; 84300-TC; 84484-TC; 84550-TC; 85025-TC; 85730-TC; 87040-TC; 87081-TC; 93971-TC; 97116-TC; 97530-TC; G0378; J1940; J2270; J2405; J3370; J3480; J3490; J7030; J7050; J7060

== ENCOUNTER 2019-01-25 10:52 | Inpatient (IN) | payer MEDICAID ==
[~2019-01-25] VITALS: Ht 180.3 cm; Wt 70.8 kg
[~2019-01-25 10:52] MED LIST changes: -APIXABAN 5 MG TABLET PO ONE; -FURO40TA5 PO; -SIMV40TA5 PO
--- NOTE | 2019-01-25 11:10 | NUR ---
L FOOT PAIN AND SWELLING X 1 WEEK. TOOK ANTIBIOTICS, CELLULITIS. NO RELIEF. PATIENT AA/OX4, BREATHING EVEN AND UNLABORED, HAD PATIENT REMOVED SOCKS. ATTACHED TO THE MONITOR. CHANGED INTO GOWN. NO DISTRESS NOTED.
[2019-01-25] MEDS ORDERED: MORPHINE SULFATE INJ 4 MG/ML DISP.SYRIN ONE (12:28)
[2019-01-25] MEDS ORDERED: MORPHINE SULFATE INJ 2 MG/ML DISP.SYRIN IV ONE (12:30)
[2019-01-25 12:41] LABS: BASOPHILS # (AUTO) 0.1 /CMM (0.0-0.2); BASOPHILS % (AUTO) 0.9 % (0.0-2.0); EOSINOPHILS % (AUTO) 3.3 % (0.0-6.0); HEMATOCRIT 35 % (39-51); HEMOGLOBIN 11.8 g/dL (13.5-17.5); LYMPHOCYTES # (AUTO) 1.2 /CMM (0.8-4.8); LYMPHOCYTES % (AUTO) 17.3 % (20.0-44.0); MEAN CORPUSCULAR HGB CONC 33 g/dl (31.0-36.0); MEAN CORPUSCULAR VOLUME 88 fL (80-96); MONOCYTES # (AUTO) 0.6 /CMM (0.1-1.30); MONOCYTES % (AUTO) 9.2 % (2.0-12.0); NEUTROPHILS # (AUTO) 4.7 /CMM (1.8-8.9); NEUTROPHILS % (AUTO) 69.3 % (43.0-81.0); PLATELET COUNT (AUTO) 638 /CMM (150-450); RED BLOOD CELL COUNT(AUTO) 4.03 MIL/uL (4.5-6.0); WHITE BLOOD COUNT (AUTO) 6.8 K/uL (4.3-11.0)
[2019-01-25 12:43] LABS: CALCIUM, SERUM 9.7 mg/dL (8.5-10.1); CREATININE 1.9 mg/dL (0.6-1.3); POTASSIUM 4.2 mmol/L (3.5-5.1)
[2019-01-25] MEDS ORDERED: LIDOCAINE 1% INJ 50 ML MDV IJ ONE ×2 (13:45→14:30)
[2019-01-25] MEDS ORDERED: VANCOMYCIN 1 GM in IV D5W 250 ML IV SCH (14:30)
--- NOTE | 2019-01-25 14:30 | NUR ---
MD AT BEDSIDE FOR ASPIRATION ON LEFT FOOT, UNSUCCESSFUL. 0 OUTPUT.
[2019-01-25] MEDS ORDERED: VANCOMYCIN 1 GM in IV NS 0.9% 250 ML IV SCH (15:00)
[2019-01-25] MEDS ORDERED: ONDANSETRON HCL/PF 4 MG/2 ML VIAL IVP PRN (15:00)
[2019-01-25] MEDS ORDERED: MAGNESIUM HYDROXIDE 30 ML UDC PO PRN (15:00)
[2019-01-25] MEDS ORDERED: hydrALAZINE HCL 25 MG TABLET PO PRN (15:00)
[2019-01-25] MEDS ORDERED: Z GUARD REMEDY 2 OZ OINT TP PRN (15:00)
[2019-01-25] MEDS ORDERED: MAG HYDROX/AL HYDROX/SIMETH 30 ML UDC PO PRN (15:00)
[2019-01-25] MEDS ORDERED: ZOLPIDEM TARTRATE 5 MG TABLET PO PRN (15:00)
[2019-01-25] MEDS ORDERED: ACETAMINOPHEN 325 MG TABLET PO PRN (15:00)
--- NOTE | 2019-01-25 15:20 | NUR ---
TELE/CHANNEL MARKETING PROGRAM MANAGER PATIENT ADMITTED FROM ER IN STABLE CONDITION TRANSFERRED VIA STRETCHER ACCOMPANIED BY EMT AND RN. A/O X 4. NO SIGNS OF ACUTE DISTRESS. COMPLAIN OF PAIN TO LEFT FOOT RATED 7/10. ADMITTING DIAGNOSIS LEFT FOOT CELLULITIS. ON TELE MONITOR NOTED WITH AFIB WITH V PACING WITH RATE OF 60. SKIN ASSESSMENT NOTED INTACT EXCEPT WITH LEFT FOOT NOTED WITH MILD REDNESS AND SWELLING. ALL NEEDS ATTENDED TO. CALL LIGHT WITHIN REACH. WILL CONTINUE TO MONITOR TO ENSURE SAFETY.
--- NOTE | 2019-01-25 15:25 | NUR ---
PATIENT TRANSFERRED TO MED SURG FLOOR ENDORSED TO CAROLINE TALBERT. REPORT GIVEN TO TOMÁS. PATIENT IN STABLE CONDITION.
[2019-01-25] MEDS ORDERED: FEE PK DOSING 1 MIN EA MC ONE (15:47)
[2019-01-25 16:00] VITALS: BP 102/74
[2019-01-25] MEDS: CARVEDILOL 12.5 MG TABLET PO SCH (16:16)
[2019-01-25] MEDS: APIXABAN 5 MG TABLET PO SCH (16:47)
[2019-01-25] MEDS: HYDROCODONE/APAP 5/325MG 1 EACH TABLET PO PRN (17:45)
--- NOTE | 2019-01-25 18:31 | NUR ---
MS/RN CLOSING NOTE PATIENT IN BED IN STABLE CONDITION. A/O X 4. NO SIGNS OF ACUTE DISTRESS. NO COMPLAIN OF PAIN OR DISCOMFORT. ON TELE MONITOR NOTED WITH CONTROLLED AFIB WITH V PACING WITH RATE OF 68. ALL NEEDS ATTENDED TO. CALL LIGHT WITHIN REACH. WILL ENDORSE TO NEXT SHIFT FOR CONTINUITY OF CARE.
--- NOTE | 2019-01-25 19:25 | NUR ---
RN INITIAL NOTES: RECEIVED REPORT FROM CAROLINE TALBERT. PT IN BED, AWAKE, C/O LEFT FOOT PAIN, 10/10. NOTED LEFT FOOT REDNESS, SWELLING, NON PITTING, NEGATIVE THROMBOSIS PER IMAGING/ULTZ. LLE OFFLOADED ON PILLOWS. IV ACCESS PATENT AND FLUSHING WELL, ON HL. SAFETY PRECAUTIONS FOR FALL INITIATED, CALL LIGHT IN REACH, WILL CONTINUE MONITORING PT.
[2019-01-25 19:26] VITALS: BP 105/87
--- NOTE | 2019-01-25 19:35 | NUR ---
RN NOTES: PT C/O 10 LEFT FOOT PAIN, STATED NORCO DOESNT HELP MANAGE HIS PAIN. HE CLAIMED ER MD POKED THE AREA WITH NEEDLE TRYING TO GET SOME FLUID WHICH AGGRAVATE HIS PAIN. PT REQUESTING FOR MORPHINE INJ. INFORMED MD REGARDING TREND OF PT'S VS AND LATEST VS TAKEN FOLLOWS 105/87 HR 81 RR 17 T 98.0. PER MD TO GIVE NORCO 10/325, 1 TAB PO Q4HRS PRN FOR SEVERE PAIN 8-04/03. ORDERS READ BACK AND VERIFIED, CARRIED OUT.
[2019-01-25] MEDS: HYDROCODONE/APAP 10/325MG 1 EA TABLET PO PRN (19:47)
--- NOTE | 2019-01-25 19:48 | NUR ---
PRN NORCO: PT C/O 10/10 PAIN ON LEFT FOOT REQUESTING FOR MEDICATION, PRN NORCO 10/325 MG TAB PO ADMINISTERED TO PT AT THIS TIME, WILL CONTINUE TO MONITOR AND REASSESS FOR EFFECTIVENESS.
[2019-01-25 20:00] VITALS: BP 105/87
--- NOTE | 2019-01-25 20:50 | NUR ---
RN NOTES: WENT TO Carlos ROBLES ON PT, REASSESS EFFECTIVENESS OF THE MEDICATION. PT STATED THAT THE MEDICINE HELPED WITH HIS PAIN. PT CLAIMED PAIN STILL PRESENT, BUT IF HE DON'T MOVE HIS FOOT, HE DOES NOT FEEL ANY PAIN, CLAIMED OF + PAIN WHEN MOVEMENT DESCRIBE THROBBING PAIN. PT ABLE TO MOVE AND WIGGLE TOES, WITH WEAK PEDAL PULSES NOTED. GOOD CAPILLARY REFILL NOTED. LLE OFFLOADED ON PILLOWS.
[2019-01-25 23:06] VITALS: BP 112/83
--- NOTE | 2019-01-25 23:16 | NUR ---
RN NOTES: PT C/O LEFT FOOT 10/10 PAIN, PAIN MEDS DUE AT 2347, NORCO SCHEDULE Q4HRS PRN FOR SEVERE PAIN. VS TAKEN AND RECORDED. NOTIFIED MD REGARDING SITUATION. AWAITING FOR CALL BACK
--- NOTE | 2019-01-25 23:20 | NUR ---
RN NOTES: PER EPIC MD TRUCKING SUPERVISOR, TO GIVE MORPHINE 4MG IVP Q4HRS PRN FOR SEVER PAIN. ORDERS READ BACK AND COMPLETED. NOTED AND CARRIED OUT.
[2019-01-25] MEDS: MORPHINE SULFATE INJ 4 MG/ML DISP.SYRIN IV PRN (23:36)
--- NOTE | 2019-01-25 23:36 | NUR ---
PRN MORPHINE: PT C/P LEFT FOOT PAIN 04/03 REQUESTING FOR PAIN MEDICATION. PRN MORPHINE 4MG IVP ADMINISTERED TO PT AT THIS TIME, WILL CONTINUE TO MONITOR AND REASSESS PT
[2019-01-26] VITALS: BP 108/73
[2019-01-26 03:48] VITALS: BP 128/88
[2019-01-26] MEDS: MORPHINE SULFATE INJ 4 MG/ML DISP.SYRIN IV PRN ×2 (03:51→08:52)
--- NOTE | 2019-01-26 03:51 | NUR ---
PRN MORPHINE: PT C/O 02/01 LEFT FOOT PAIN REQUESTING FOR MORPHINE, VS TAKEN AND RECORDED PRIOR TO ADMINISTERING MEDICATION. PRN MORPHINE 4MG IVP ADMINISTERED AT THIS TIME, WILL CONTINUE TO MONITOR AND REASSESS EFFECTIVENESS OF MEDICATION.
[2019-01-26 04:00] VITALS: BP 117/80
[2019-01-26 06:11] LABS: BASOPHILS # (AUTO) 0.1 /CMM (0.0-0.2); BASOPHILS % (AUTO) 0.9 % (0.0-2.0); HEMATOCRIT 34 % (39-51); HEMOGLOBIN 11.2 g/dL (13.5-17.5); LYMPHOCYTES # (AUTO) 1.5 /CMM (0.8-4.8); LYMPHOCYTES % (AUTO) 25.1 % (20.0-44.0); MEAN CORPUSCULAR HGB CONC 33 g/dl (31.0-36.0); MEAN CORPUSCULAR VOLUME 88 fL (80-96); MONOCYTES # (AUTO) 0.6 /CMM (0.1-1.30); MONOCYTES % (AUTO) 9.2 % (2.0-12.0); NEUTROPHILS # (AUTO) 3.6 /CMM (1.8-8.9); NEUTROPHILS % (AUTO) 60.8 % (43.0-81.0); PLATELET COUNT (AUTO) 609 /CMM (150-450); RED BLOOD CELL COUNT(AUTO) 3.89 MIL/uL (4.5-6.0)
[2019-01-26 06:22] LABS: CREATININE 1.7 mg/dL (0.6-1.3); MAGNESIUM 2.2 mg/dL (1.8-2.4); PHOSPHORUS 4.7 mg/dL (2.5-4.9); POTASSIUM 4.1 mmol/L (3.5-5.1)
--- NOTE | 2019-01-26 06:43 | NUR ---
RN CLOSING NOTES; PT IN BED, AWAKE, LAST PAIN MEDS ADMINISTERED AT 0355AM. IV ACCESS REMAINS PATENT AND FLUSHING WELL, ON HL. LLE KEPT OFFLOADED ON PILLOWS. REMAINS AFIB CONTROLLED, V PACING HR 71. VS REMAINS STABLE, NEEDS ATTENDED. SAFETY PRECAUTIONS FOR FALL REMAINS ENGAGED, CALL LIGHT IN REACH, WILL ENDORSE TO DAY RN FOR CONTINUITY OF CARE.
--- NOTE | 2019-01-26 07:45 | NUR ---
RN OPENING NOTES PT AWAKE AND RESTING IN BED. PT COMPLAINS OF LEFT FOOT PAIN. PER TYPE ROLLING MACHINE OPERATOR NURSE, PT PAIN ONLY MANAGED THROUGH MORPHINE. PT TELE MONITORED CONTROLLED A FIB V PACING. PT HAS RIGHT AC #20 IV INTACT AND PATENT. SAFETY PRECAUTIONS IN PLACE, BED IN LOWEST LOCKED POSITION, X2 SIDE RAILS UP AND CALL LIGHT WITHIN REACH. WILL CONTINUE TO MONITOR.
[2019-01-26 08:00] VITALS: BP 142/81
[2019-01-26] MEDS: APIXABAN 5 MG TABLET PO SCH ×2 (08:49→17:04)
[2019-01-26] MEDS: FUROSEMIDE 20 MG TABLET PO SCH (08:49)
[2019-01-26] MEDS: CARVEDILOL 12.5 MG TABLET PO SCH ×2 (08:50→16:37)
[2019-01-26] MEDS: VANCOMYCIN 1 GM in IV D5W 250 ML IV SCH (08:51)
--- NOTE | 2019-01-26 11:34 | NUR ---
RN NOTES PATIENT GIVEN HEAT PACK FOR LEFT ANKLE PAIN. PER PATIENT HE ALTERNATES BETWEEN HEAT AND COLD FOR PAIN RELIEF AT HOME. PATIENT ALSO GIVEN DIETARY EDUCATION ON GOUT.
[2019-01-26] MEDS: predniSONE 20 MG TABLET PO SCH (14:09)
[2019-01-26] MEDS: TRAMADOL HCL 50 MG TABLET PO SCH ×2 (14:10→21:08)
--- NOTE | 2019-01-26 14:15 | NUR ---
RN NOTES AWOKE PATIENT FOR SCHEDULED 1400 TORADOL. PT RESTFULLY SLEEPING IN NO SIGN OF DISTRESS. PER PATIENT PAIN LEVEL "04/03". WILL CONTINUE TO MONITOR. Addendum: 01/26/19 at 1428 by ZINA BENAVIDES RN TRAMADOL. NOT TORADOL.
[2019-01-26 15:29] VITALS: BP 102/73
--- NOTE | 2019-01-26 18:28 | NUR ---
RN CLOSING NOTES PT AWAKE AND RESTING IN BED. PT STATES THAT PAIN WELL MANAGED WITH TRAMADOL. PT HAS RIGHT AC #20 IV INTACT AND PATENT. PER PATIENT " FEELS A LOT BETTER AND SHOULD BE READY TO GO HOME TOMORROW." SAFETY PRECAUTIONS IN PLACE, BED IN LOWEST LOCKED POSITION, X2 SIDE RAILS UP AND CALL LIGHT WITHIN REACH. WILL ENDORSE TO ASPARAGUS BUNCHER NURSE FOR CONTINUITY OF CARE.
--- NOTE | 2019-01-26 19:25 | NUR ---
MS GALI OPENING NOTES: RECEIVED PT ON ROOM AIR AND IS TOLERATING WELL. NO SOB NOTED. PT WATCHING SOMETHING ON HIS LAPTOP AND USING HIS PHONE AT THIS TIME. PT ASKING FOR WHEN NEXT SCHEDULED PAIN MED IS HE IS STARTING TO HAVE L FOOT PAIN. PT HAS IV ON R AC #20G AND IS PATENT AND INTACT .CURRENTLY H/L. BED KEPT IN LOW, LOCKED POSITION, AND SIDE RAILS X 2UP. WILL CONTINUE TO MONITOR PT. Addendum: 01/26/19 at 2345 by RAYMOND DRAKE RN R AC #20G
[2019-01-26 20:00] VITALS: BP 119/68
[2019-01-27] MEDS: VANCOMYCIN 1 GM in IV D5W 250 ML IV SCH ×2 (01:58→19:39)
[2019-01-27] MEDS: HYDROCODONE/APAP 5/325MG 1 EACH TABLET PO PRN ×3 (02:22→19:45)
--- NOTE | 2019-01-27 02:26 | NUR ---
MS RN NOTES: IV IN R AC NOTED LEAKING AND REMOVED. NEW IV STARTED ON R HAND 22G. ALSO, PT COMPLAINING OF 5/10 L FOOT PAIN. PT WAS ADMINISTERED NORCO 5 PO. WILL CONTINUE TO MONITOR.
[2019-01-27] MEDS: TRAMADOL HCL 50 MG TABLET PO SCH ×3 (06:31→21:16)
--- NOTE | 2019-01-27 06:33 | NUR ---
MS RN CLOSING NOTES: ALL NEEDS WERE ATTENDED AND ANTICIPATED FOR. PT KEPT CLEAN, DRY, AND COMFORTABLE. PT AWAKE AND SITTING UP IN BED AT THIS TIME ON HIS LAPTOP. NO SOB NOTED. NO S/S OF DISTRESS. PT JUST ADMINISTERED TRAMADOL 50MG FOR L FOOT MILD 5/10 PAIN. ENCOURAGED PT TO ELEVATE WITH PILLOW. BED KEPT IN LOW, LOCKED POSITION, AND SIDE RAILS X 2UP. WILL ENDORSE TO AM NURSE FOR MACEY.
[2019-01-27 07:26] LABS: CALCIUM, SERUM 9.2 mg/dL (8.5-10.1); CREATININE 1.6 mg/dL (0.6-1.3); POTASSIUM 4.3 mmol/L (3.5-5.1)
--- NOTE | 2019-01-27 07:49 | NUR ---
RN OPENING NOTES PT AWAKE AND RESTING IN BED. NO COMPLAINTS OF PAIN, SOB OR DISTRESS AT THIS TIME. PER PATIENT FEELS "A LOT BETTER AND WOULD LIKE TO GO HOME." PT HAS RIGHT HAND #22 IV INTACT AND PATENT. SAFETY PRECAUTIONS IN PLACE, BED IN LOWEST LOCKED POSITION, X2 SIDE RAILS UP AND CALL LIGHT WITHIN REACH. WILL CONTINUE TO MONITOR.
[2019-01-27 08:00] VITALS: BP 134/93
[2019-01-27] MEDS: predniSONE 20 MG TABLET PO SCH (08:24)
[2019-01-27] MEDS: FUROSEMIDE 20 MG TABLET PO SCH (08:24)
[2019-01-27] MEDS: CARVEDILOL 12.5 MG TABLET PO SCH ×2 (08:25→16:11)
[2019-01-27] MEDS: APIXABAN 5 MG TABLET PO SCH ×2 (08:26→16:10)
--- NOTE | 2019-01-27 11:21 | NUR ---
WOUND CARE CONSULT: PT PRESENTS WITH INTACT SKIN AND SOME PEELING SKIN BETWEEN TOES, PRESENT ON ADMISSION. INK HAN ON LEFT FOOT NOTED, PRESENT ON ADMISSION. WILL SEE PRN. CURRENT KRUNAL SCORE IS 19.
[2019-01-27 16:00] VITALS: BP 138/81
--- NOTE | 2019-01-27 18:45 | NUR ---
RN CLOSING NOTES PT AWAKE AND RESTING IN BED. NO COMPLAINTS OF PAIN OR SOB DURING SHIFT. PT HAS RIGHT HAND #22 IV INTACT AND PATENT. SAFETY PRECAUTIONS IN PLACE, BED IN LOWEST LOCKED POSITION, X2 SIDE RAILS UP AND CALL LIGHT WITHIN REACH. ALL PATIENT NEEDS MET DURING SHIFT. WILL ENDORSE TO RESIDENTIAL CARE FACILITY MANAGER NURSE FOR CONTINUITY OF CARE.
--- NOTE | 2019-01-27 19:28 | NUR ---
MS RN OPENING NOTES: RECEIVED PT ON ROOM AIR AND IS SITTING UP IN BED WITH FRIEND AT BEDSIDE. PT IS A/OX4. PT HAS IV ON R HAND #22G AND IS PATENT AND INTACT. CURRENTLY H/L. NO SOB NOTED. NO S/S OF DISTRESS. PT JUST APPEARS TO BE ANXIOUS. BED KEPT IN LOW, LOCKED POSITION, AND SIDE RAILS X 2UP. WILL CONTINUE TO MONITOR PT.
--- NOTE | 2019-01-27 19:49 | NUR ---
MS RN NOTES: PT COMPLAINING OF 10/10 L FOOT PAIN. PT SAYING THE PAIN IS STARTING TO FLARE UP AGAIN. PT WAS ADMINISTERED NORCO 5 PO. WILL CONTINUE TO MONITOR.
[2019-01-27 20:05] VITALS: BP 145/96
--- NOTE | 2019-01-27 20:24 | NUR ---
MS RN NOTES: INFORMED LINE PREP COOK PRANAY PADILLA THAT PT WANTS SLEEPING AID. GOT ORDER FOR RESTORIL 15MG PO QHS PRN.
[2019-01-27] MEDS ORDERED: TEMAZEPAM 15 MG CAPSULE PO PRN (20:30)
--- NOTE | 2019-01-27 21:17 | NUR ---
MS RN NOTES: PT AMBULATED TO RESTROOM. PT NOW COMPLAINING OF 9/10 L FOOT PAIN. PT WAS ADMINISTERED TRAMADOL 50MG PO. WILL CONTINUE TO MONITOR.
--- NOTE | 2019-01-27 22:51 | NUR ---
MS RN NOTES: PT COMPLAINING THAT HE CANNOT SLEEP. HE HAS TOO MUCH ON HIS MIND ABOUT NOT PAYING HIS RENT AND HE HAS A 3 DAY NOTICE. PT WAS ADMINISTERED AMBIEN 5MG PO. WILL CONTINUE TO MONITOR.
[2019-01-28] MEDS: TRAMADOL HCL 50 MG TABLET PO SCH ×2 (05:36→14:05)
--- NOTE | 2019-01-28 05:37 | NUR ---
MS RN NOTES: PT COMPLAINING OF 8/10 L FOOT PAIN. PT SAID AFTER BEING WOKEN UP FROM SOLUTION DESIGN ENGINEER, HIS FOOT PAIN STARTED TO COME BACK. ALSO, HE DOES NOT WANT IT TO GET WORSE. PT WAS ADMINISTERED TRAMADOL 50MG PO. WILL CONTINUE TO MONITOR.
--- NOTE | 2019-01-28 06:39 | NUR ---
MS RN CLOSING NOTES: ALL NEEDS WERE ATTENDED AND ANTICIPATED FOR. PT KEPT CLEAN, DRY, AND COMFORTABLE. PT ON ROOM AIR AND TOLERATING WELL. NO SOB NOTED. NO S/S OF DISTRESS. PT ANTICIPATING TO GO HOME. PT VERBALIZED HE WAS ABLE TO SLEEP WITH THE AMBIEN 5MG PO ADMINISTERED LAST NIGHT. IV REMAINS ON R HAND #[id number] AND IS PATENT AND INTACT. CURRENTLY H/L. BED KEPT IN LOW, LOCKED POSITION, AND SIDE RAILS X 2UP. WILL ENDORSE TO AM NURSE FOR MACEY.
[2019-01-28 07:04] LABS: BASOPHILS % (AUTO) 0.2 % (0.0-2.0); EOSINOPHILS % (AUTO) 0.2 % (0.0-6.0); HEMATOCRIT 32 % (39-51); HEMOGLOBIN 10.2 g/dL (13.5-17.5); LYMPHOCYTES # (AUTO) 1.2 /CMM (0.8-4.8); LYMPHOCYTES % (AUTO) 10.9 % (20.0-44.0); MEAN CORPUSCULAR HGB CONC 32 g/dl (31.0-36.0); MEAN CORPUSCULAR VOLUME 87 fL (80-96); MONOCYTES # (AUTO) 0.7 /CMM (0.1-1.30); MONOCYTES % (AUTO) 6.1 % (2.0-12.0); NEUTROPHILS # (AUTO) 9.2 /CMM (1.8-8.9); NEUTROPHILS % (AUTO) 82.6 % (43.0-81.0); PLATELET COUNT (AUTO) 521 /CMM (150-450); RED BLOOD CELL COUNT(AUTO) 3.64 MIL/uL (4.5-6.0); WHITE BLOOD COUNT (AUTO) 11.1 K/uL (4.3-11.0)
[2019-01-28 07:06] LABS: CALCIUM, SERUM 8.9 mg/dL (8.5-10.1); CREATININE 1.6 mg/dL (0.6-1.3); PHOSPHORUS 3.4 mg/dL (2.5-4.9); POTASSIUM 4.1 mmol/L (3.5-5.1)
--- NOTE | 2019-01-28 07:40 | NUR ---
MS RN OPENING NOTES RECEIVED PT SITTING UP IN BED, AWAKE. A/O X4, AFEBRILE. RESPIRATIONS ARE EVEN AND UNLABORED, NOT IN ANY ACUTE DISTRESS NOTED. NO C/O PAIN, SOB, N/V. IV ACCESS TO RIGHT HAND INTACT, NO INFILTRATION NOTED. DRESSING KEPT CLEAN AND DRY. SAFETY MEASURES ARE IN PLACE. INSTRUCTED PT TO USE CALL LIGHT WHEN ASSISTANCE IS NEEDED, CALL LIGHT IS LEFT WITHIN REACH. WILL MONITOR THROUGHOUT SHIFT FOR CONTINUITY OF CARE.
[2019-01-28 08:00] VITALS: BP 156/93
[2019-01-28] MEDS: predniSONE 20 MG TABLET PO SCH (08:38)
[2019-01-28] MEDS: FUROSEMIDE 20 MG TABLET PO SCH (08:38)
[2019-01-28 08:39] VITALS: BP 156/93
[2019-01-28] MEDS: CARVEDILOL 12.5 MG TABLET PO SCH (08:39)
--- NOTE | 2019-01-28 08:40 | NUR ---
MS RN NOTES-- PT WAS SEEN AND EXAMINED BY DR. LILIBETH Leon/ ORDERS FOR DISCHARGE.
[2019-01-28] MEDS: HYDROCODONE/APAP 10/325MG 1 EA TABLET PO PRN (08:41)
[2019-01-28] MEDS: APIXABAN 5 MG TABLET PO SCH (08:42)
[2019-01-28] MEDS: VANCOMYCIN 1 GM in IV D5W 250 ML IV SCH (14:05)
--- NOTE | 2019-01-28 15:00 | NUR ---
MS RN CLINICAL DOCUMENTATION NOTE PT DISCHARGED TO HOME IN MEDICALLY STABLE CONDITION WITH FRIEND NEYMAR VIA PERSONAL VEHICLE. PT IS A/O X4, AFEBRILE. RESPIRATIONS ARE EVEN AND UNLABORED, NOT IN ANY ACUTE DISTRESS NOTED. PUPILS ARE REACTIVE TO LIGHT, BILATERAL HAND CURATOR [employer] ARE STRONG AND EQUAL. ABDOMEN IS SOFT AND NONDISTENDED, BOWEL SOUNDS ARE PRESENT IN ALL 4 QUADRANTS UPON AUSCULTATION. DENIES ANY BLADDER DISCOMFORT. PICTURES TAKEN TO BILATERAL FEET AND PLACED IN CHART. EXPLAINED DISCHARGE PAPERWORK TO PT WITH VERBAL AND WRITTEN UNDERSTANDING AND TO FOLLOW UP WITH HIS PCP. IV ACCESS REMOVED, APPLIED PRESSURE AND TOLERATED WELL. ID BANDS REMOVED. ALL BELONGINGS ACCOUNTED AND SENT HOME WITH PT. PT LEFT IN STABLE CONDITION.
== END 2019-01-28 14:56 | disposition home or self-care (01) | DRG 351 ==
LOC: ER 10:54 → MED 12:34 → TELE 17:51 → MED 01-26 09:31
PROVIDERS: ADMIT Internal Medicine; ATTEND Internal Medicine
DX: M10.9 Gout, unspecified (principal); N17.0 Acute kidney failure with tubular necrosis; I21.4 Non-ST elevation (NSTEMI) myocardial infarction; I50.23 Acute on chronic systolic (congestive) heart failure; E87.1 Hypo-osmolality and hyponatremia; G62.9 Polyneuropathy, unspecified; L03.116 Cellulitis of left lower limb; I48.0 Paroxysmal atrial fibrillation; I13.0 Hypertensive heart and chronic kidney disease with heart failure and stage 1 through stage 4 chronic kidney disease, or unspecified chronic kidney disease; N18.9 Chronic kidney disease, unspecified; N13.2 Hydronephrosis with renal and ureteral calculous obstruction; Z87.442 Personal history of urinary calculi; M19.90 Unspecified osteoarthritis, unspecified site; Z95.810 Presence of automatic (implantable) cardiac defibrillator; Z86.73 Personal history of transient ischemic attack (TIA), and cerebral infarction without residual deficits; Z83.3 Family history of diabetes mellitus; Z82.49 Family history of ischemic heart disease and other diseases of the circulatory system; Z79.899 Other long term (current) drug therapy; Z79.82 Long term (current) use of aspirin; Z79.01 Long term (current) use of anticoagulants; I25.10 Atherosclerotic heart disease of native coronary artery without angina pectoris; F17.200 Nicotine dependence, unspecified, uncomplicated; I42.9 Cardiomyopathy, unspecified; K57.30 Diverticulosis of large intestine without perforation or abscess without bleeding
CPT/HCPCS: 36415; 73630-TC; 80048-TC; 80061-TC; 80074; 80202-TC; 83735-TC; 84100-TC; 84443-TC; 85025-TC; 85652-TC; 86140-TC; 87081-TC; 87806; 93970-TC; G0378; J2270; J3370; J3490; J7050; J7060

== ENCOUNTER 2019-07-09 14:24 | Inpatient (IN) | payer MEDICAID ==
[~2019-07-09] VITALS: Ht 180.3 cm; Wt 66.7 kg
[~2019-07-09 14:24] MED LIST changes: -ASPI-1169 PO
--- NOTE | 2019-07-09 14:24 | NUR ---
SHORT OF BREATH X 1 WEEK, pt awake, alert, -sob, nad noted, vss, pending md abreu
[2019-07-09 15:49] LABS: BASOPHILS # (AUTO) 0.1 /CMM (0.0-0.2); BASOPHILS % (AUTO) 1.2 % (0.0-2.0); EOSINOPHILS % (AUTO) 1.8 % (0.0-6.0); HEMATOCRIT 49 % (39-51); HEMOGLOBIN 15.7 g/dL (13.5-17.5); LYMPHOCYTES # (AUTO) 1.6 /CMM (0.8-4.8); LYMPHOCYTES % (AUTO) 20.2 % (20.0-44.0); MEAN CORPUSCULAR HGB CONC 32 g/dl (31.0-36.0); MEAN CORPUSCULAR VOLUME 89 fL (80-96); MONOCYTES # (AUTO) 0.4 /CMM (0.1-1.30); MONOCYTES % (AUTO) 4.7 % (2.0-12.0); NEUTROPHILS # (AUTO) 5.7 /CMM (1.8-8.9); NEUTROPHILS % (AUTO) 72.1 % (43.0-81.0); PLATELET COUNT (AUTO) 212 /CMM (150-450); RED BLOOD CELL COUNT(AUTO) 5.49 MIL/uL (4.5-6.0); WHITE BLOOD COUNT (AUTO) 7.9 K/uL (4.3-11.0)
[2019-07-09 16:02] LABS: CALCIUM, SERUM 9.2 mg/dL (8.5-10.1); CREATININE 1.9 mg/dL (0.6-1.3); POTASSIUM 4.4 mmol/L (3.5-5.1)
[2019-07-09 16:14] LABS: ALBUMIN 1.5 g/dL (3.4-5.0); BILIRUBIN,DIRECT 0.1 mg/dL (0.0-0.2); BILIRUBIN,TOTAL 1.1 mg/dL (0.2-1.0); TOTAL PROTEIN, SERUM 7.7 g/dL (6.4-8.2)
[2019-07-09] MEDS ORDERED: FUROSEMIDE 40 MG/4 ML VIAL IV ONE (17:00)
[2019-07-09] MEDS ORDERED: ASPIRIN 81 MG TAB.CHEW PO ONE (17:00)
--- NOTE | 2019-07-09 17:00 | NUR ---
PANEL ON-CALL PAGED
[2019-07-09] MEDS ORDERED: ASPIRIN 81 MG TAB.CHEW ONE (17:06)
[2019-07-09] MEDS ORDERED: FUROSEMIDE 40 MG/4 ML VIAL ONE (17:06)
--- NOTE | 2019-07-09 18:06 | NUR ---
report given to jie burgess for garry; pt will be transported to 3rd floor
[2019-07-09] MEDS ORDERED: MAG HYDROX/AL HYDROX/SIMETH 30 ML UDC PO PRN (18:30)
[2019-07-09] MEDS ORDERED: ONDANSETRON HCL/PF 4 MG/2 ML VIAL IVP PRN (18:30)
[2019-07-09] MEDS ORDERED: Z GUARD REMEDY 2 OZ OINT TP PRN (18:30)
[2019-07-09] MEDS ORDERED: ACETAMINOPHEN 325 MG TABLET PO PRN (18:30)
[2019-07-09] MEDS ORDERED: MAGNESIUM HYDROXIDE 30 ML UDC PO PRN (18:30)
[2019-07-09] MEDS ORDERED: ALLOPURINOL 100 MG TABLET PO PRN (18:30)
--- NOTE | 2019-07-09 19:45 | NUR ---
DRY HEAT ROOM ATTENDANT OPENING/ADMISSION NOTES RECEIVED PATIENT IN BED AWAKE, ALERT AND ORIENTED X4, VERBALLY RESPONSIVE, ABLE TO MAKE NEEDS KNOWN. BREATHING EVEN AND UNLABORED. NOTED WITH SOB ON EXERTION. REFUSES OXYGEN. AFIB ON MONITOR. WITH COMPLAINTS OF PAIN ON THE LOWER BACK, BUT DENIES CHEST PAIN. DENIES N/V. PATIENT'S SKIN IS INTACT. NO SWELLING/EDEMA. PATIENT IS AMBULATORY WITH A STEADY GAIT. ORIENTED TO THE USE OF CALL LIGHT. PROVIDED DINNER TRAY. ALL BELONGINGS ACCOUNTED. DISCUSSED PLAN OF CARE. SAFETY MEASURES IN PLACE. CALL LIGHT WITHIN REACH. WILL CONTINUE TO MONITOR.
[2019-07-09 20:00] VITALS: BP 138/94
[2019-07-09] MEDS: HYDROCODONE/APAP 5/325MG 1 EACH TABLET PO PRN (23:21)
--- NOTE | 2019-07-09 23:50 | NUR ---
NAVIGATING OFFICER NOTES PATIENT REQUESTED FOR SLEEP MEDICATION. PIANO SOUNDING BOARD MATCHER FRIDA HERE IN UNIT AND MADE AWARE OF REQUEST, WITH AN ORDER FOR AMBIEN 5MG PO X1 ONLY. ORDER NOTED AND CARRIED OUT. WILL CONTINUE TO MONITOR.
[2019-07-10] VITALS: BP 136/90
[2019-07-10] MEDS ORDERED: ZOLPIDEM TARTRATE 5 MG TABLET PO ONE
[2019-07-10] MEDS ORDERED: ZOLPIDEM TARTRATE 5 MG TABLET PO PRN (00:30)
[2019-07-10 04:00] VITALS: BP 114/84
--- NOTE | 2019-07-10 06:09 | NUR ---
SUPERVISOR LOCOMOTIVE CLOSING NOTES NO ACUTE CHANGES THROUGHOUT SHIFT, ALTHOUGH PATIENT SEEMS ANXIOUS ABOUT HIS HEALTH CONDITION. INFORMED PATIENT THAT HE IS FOR A CARDIO CONSULT THIS AM - PATIENT VERBALIZED UNDERSTANDING. AFIB 80s-low 100s ON MONITOR. CURRENTLY DENIES PAIN OR DISCOMFORT. TOLERATING ROOM AIR. REMAINS AFEBRILE. ALL OTHER NEEDS ATTENDED TO. SAFETY MEASURES IN PLACE. CALL LIGHT WITHIN REACH. WILL ENDORSE TO ONCOMING NURSE FOR MACEY.
[2019-07-10 07:26] LABS: BASOPHILS % (AUTO) 0.6 % (0.0-2.0); EOSINOPHILS % (AUTO) 4.2 % (0.0-6.0); HEMATOCRIT 42 % (39-51); HEMOGLOBIN 13.5 g/dL (13.5-17.5); LYMPHOCYTES % (AUTO) 34.3 % (20.0-44.0); MEAN CORPUSCULAR HGB CONC 32 g/dl (31.0-36.0); MEAN CORPUSCULAR VOLUME 88 fL (80-96); MONOCYTES # (AUTO) 0.4 /CMM (0.1-1.30); MONOCYTES % (AUTO) 7.6 % (2.0-12.0); NEUTROPHILS % (AUTO) 53.3 % (43.0-81.0); PLATELET COUNT (AUTO) 193 /CMM (150-450); RED BLOOD CELL COUNT(AUTO) 4.81 MIL/uL (4.5-6.0); WHITE BLOOD COUNT (AUTO) 5.7 K/uL (4.3-11.0)
--- NOTE | 2019-07-10 07:30 | NUR ---
TELE/RN Opening note Patient received resting in bed, A/O x4 showing no signs of acute distress, saturating 98% on RA. Tele monitor A-fib 80-low 100s. IV line is clean and intact. Patient has no complaints of pain at this time. Patient is ambulatory and has BRP, skin is intact. Bed is in lowest position, side rails x2 in upright position, call light is within reach and patient is aware of how to call for assistance when needed. Will continue with plan of care. Safety precautions enforced.
[2019-07-10 07:57] LABS: CALCIUM, SERUM 7.9 mg/dL (8.5-10.1); CREATININE 1.9 mg/dL (0.6-1.3); MAGNESIUM 1.8 mg/dL (1.8-2.4); PHOSPHORUS 4.3 mg/dL (2.5-4.9); POTASSIUM 3.7 mmol/L (3.5-5.1)
[2019-07-10 08:00] VITALS: BP_SYST 147; BP_DIAS 107; BP_DIAS 84
[2019-07-10] MEDS: APIXABAN 5 MG TABLET PO SCH ×2 (08:43→18:23)
[2019-07-10] MEDS: BENAZEPRIL HCL 20 MG TABLET PO SCH (08:44)
[2019-07-10] MEDS: CARVEDILOL 12.5 MG TABLET PO SCH ×2 (08:44→17:00)
[2019-07-10] MEDS: FUROSEMIDE 40 MG/4 ML VIAL IV SCH ×2 (08:45→17:00)
[2019-07-10] MEDS: HYDROCODONE/APAP 5/325MG 1 EACH TABLET PO PRN ×3 (10:11→21:11)
[2019-07-10 12:00] VITALS: BP 101/64
--- NOTE | 2019-07-10 12:00 | NUR ---
MS/RN note DC tele per MD. Patient remains stable. Will continue to monitor.
[2019-07-10 16:00] VITALS: BP 92/61
--- NOTE | 2019-07-10 18:30 | NUR ---
MS/RN CLOSING NOTE Patient isresting in bed, A/O x4 showing no signs of acute distress, saturating 98% on RA. IV line s/l is clean and intact. Patient has no complaints of pain at this time. Patient is ambulatory and has BRP, skin is intact. All patient needs met, all due meds given. Bed is in lowest position, side rails x2 in upright position, call light is within reach and patient is aware of how to call for assistance when needed. Safety precautions enforced. Will endorse to assistant casino shift manager.
--- NOTE | 2019-07-10 19:15 | NUR ---
MS RN NOTES RECEIVED PT IN BED AWAKE AND ABLE TO MAKE NEEDS KNOWN. PT A/O X3. RESPIRATIONS EVEN AND UNLABORED WITH NO S/S OF ACUTE DISTRESS OR SOB NOTED AT THIS TIME. NO COMPLAINTS OF PAIN AT THIS TIME. PT NOTED WITH RFA #20G PATENT AND INTACT AND SL. SAFETY MEASURES IN PLACE WITH BED IN LOWEST LOCKED POSITION WITH SIDE RAILS UP X2. CALL LIGHT WITHIN REACH. WILL CONTINUE TO MONITOR.
[2019-07-10 20:00] VITALS: BP 132/65
--- NOTE | 2019-07-10 21:23 | NUR ---
Patient is alert and oriented, he lives with roommates. He is usually ambulatory and independent with adl's. Denies having DME. His pcp is at [facility]. Has a friend that will provide ride when discharge. Addendum: 07/10/19 at 2124 by CHIDI ZEPEDA RN Amended: Links added.
--- NOTE | 2019-07-11 06:55 | NUR ---
MS RN NOTES PT IN BED AWAKE AND ABLE TO MAKE NEEDS KNOWN. PT A/O X3. RESPIRATIONS EVEN AND UNLABORED WITH NO S/S OF ACUTE DISTRESS OR SOB NOTED AT THIS TIME. NO COMPLAINTS OF PAIN AT THIS TIME. PT NOTED WITH RFA #20G PATENT AND INTACT AND SL. SAFETY MEASURES IN PLACE WITH BED IN LOWEST LOCKED POSITION WITH SIDE RAILS UP X2. CALL LIGHT WITHIN REACH. WILL ENDORSE TO ONCOMING NURSE FOR MACEY.
[2019-07-11 07:05] LABS: CHOLESTEROL 111 mg/dL (<200); HDL CHOLESTEROL 27 mg/dL (40-60); LDL 67 mg/dL (0-99); TRIGLYCERIDES 194 mg/dL (30-150)
--- NOTE | 2019-07-11 07:47 | NUR ---
TELE/RN Opening note Patient received resting in bed, A/O x4 showing no signs of acute distress, saturating 98% on RA. IV line is clean and intact. Patient has no complaints of pain at this time. Patient is ambulatory and has BRP, skin is intact. Bed is in lowest position, side rails x2 in upright position, call light is within reach and patient is aware of how to call for assistance when needed. Safety precautions enforced. Will continue with plan of care.
[2019-07-11 08:00] VITALS: BP 132/91
[2019-07-11] MEDS: CARVEDILOL 12.5 MG TABLET PO SCH ×2 (08:41→16:19)
[2019-07-11] MEDS: BENAZEPRIL HCL 20 MG TABLET PO SCH (08:42)
[2019-07-11] MEDS: APIXABAN 5 MG TABLET PO SCH ×2 (08:44→16:20)
[2019-07-11] MEDS ORDERED: FUROSEMIDE 40 MG TABLET PO SCH (09:00)
[2019-07-11] MEDS: HYDROCODONE/APAP 5/325MG 1 EACH TABLET PO PRN ×2 (09:47→16:18)
[2019-07-11 10:03] LABS: CALCIUM, SERUM 8.7 mg/dL (8.5-10.1); CREATININE 1.8 mg/dL (0.6-1.3); MAGNESIUM 1.9 mg/dL (1.8-2.4); POTASSIUM 3.7 mmol/L (3.5-5.1)
[2019-07-11 10:37] LABS: BASOPHILS % (AUTO) 0.8 % (0.0-2.0); EOSINOPHILS % (AUTO) 5.1 % (0.0-6.0); HEMATOCRIT 40 % (39-51); HEMOGLOBIN 12.8 g/dL (13.5-17.5); LYMPHOCYTES # (AUTO) 2.4 /CMM (0.8-4.8); LYMPHOCYTES % (AUTO) 40.1 % (20.0-44.0); MEAN CORPUSCULAR HGB CONC 32 g/dl (31.0-36.0); MEAN CORPUSCULAR VOLUME 88 fL (80-96); MONOCYTES # (AUTO) 0.4 /CMM (0.1-1.30); MONOCYTES % (AUTO) 6.7 % (2.0-12.0); NEUTROPHILS # (AUTO) 2.8 /CMM (1.8-8.9); NEUTROPHILS % (AUTO) 47.3 % (43.0-81.0); PLATELET COUNT (AUTO) 186 /CMM (150-450); RED BLOOD CELL COUNT(AUTO) 4.56 MIL/uL (4.5-6.0)
[2019-07-11] MEDS ORDERED: FURO-144 PO (13:13)
--- NOTE | 2019-07-11 14:48 | NUR ---
Social service consult requested by patient advocate David for community clinic resources. Upon chart review and MD notes, pt is a 53-year-old Male with history of CKD, atrial fibrillation, hypertension, pacemaker, AICD and CHF who presented to the ED for evaluation of shortness of breath, dizziness, and chest pain. PARKING ANALYST met with the pt bedside and introduced herself and her role. Pt. is alert and oriented x 4. Pt is pleasant with PARKING ANALYST during the assessment. Per pt. he has emergency medi-belkis and is wanting referrals to community health clinics. PARKING ANALYST provided active listening and supportive counseling. PARKING ANALYST gave pt referral list [facility] which [facility]. PARKING ANALYST also gave pt. list of [facility] hospitals and [facility] [employer] discounted medication cards. No other social service needs are requested at this time. PARKING ANALYST is available, if needed.
[2019-07-11 16:00] VITALS: BP 109/64
[2019-07-11 16:19] VITALS: BP 109/64
--- NOTE | 2019-07-11 18:30 | NUR ---
MS/senior talent management consultant note Patient is medically stable for discharge. DC instructions given and patient verbalized understanding. Skin assessment refused. IV line removed and ID band removed. All belongings with patient and belongings list signed. Patient is alert and oriented. All patient needs met, all due meds given. MD aware of discharge. Patient stated he will make call and find a ride home, refused taxi or bus pass. Addendum: 07/11/19 at 2024 by ANTIONE RIBEIRO RN report given to night workerdate night sitter, made aware of patient discharge.
--- NOTE | 2019-07-11 20:33 | NUR ---
MS RN NOTES Patient left the facility at this time, via wheelchair sent downstairs by the assigned THEORETICAL PHYSICIST. Patient denies any discomfort. All belongings accounted for. Friend picked up the patient at this time.
== END 2019-07-11 20:30 | disposition home or self-care (01) | DRG 194 ==
LOC: ER 14:27 → TELE 17:56 → MED 07-10 11:26
PROVIDERS: ADMIT Internal Medicine; ATTEND Internal Medicine
DX: I13.0 Hypertensive heart and chronic kidney disease with heart failure and stage 1 through stage 4 chronic kidney disease, or unspecified chronic kidney disease (principal); I21.A1 Myocardial infarction type 2; N17.0 Acute kidney failure with tubular necrosis; I48.91 Unspecified atrial fibrillation; I50.23 Acute on chronic systolic (congestive) heart failure; N18.9 Chronic kidney disease, unspecified; F17.210 Nicotine dependence, cigarettes, uncomplicated; I25.10 Atherosclerotic heart disease of native coronary artery without angina pectoris; I42.9 Cardiomyopathy, unspecified; Z83.3 Family history of diabetes mellitus; Z82.49 Family history of ischemic heart disease and other diseases of the circulatory system; Z86.73 Personal history of transient ischemic attack (TIA), and cerebral infarction without residual deficits; Z91.19 Patient's noncompliance with other medical treatment and regimen; Z95.810 Presence of automatic (implantable) cardiac defibrillator; Z79.01 Long term (current) use of anticoagulants; M10.9 Gout, unspecified; Z87.442 Personal history of urinary calculi; Z71.6 Tobacco abuse counseling
CPT/HCPCS: 36415; 71045-TC; 80048-TC; 80061-TC; 80076-TC; 83735-TC; 83880; 84100-TC; 84439-TC; 84443-TC; 84484-TC; 85025-TC; 85378-TC; 85730-TC; 87081-TC; 93307-TC; G0378; J1940

== ENCOUNTER 2019-11-08 11:51 | Emergency (ER) | payer MEDICAID ==
[~2019-11-08] VITALS: Ht 180.3 cm; Wt 70.8 kg
[~2019-11-08 11:51] MED LIST changes: +FURO-144 PO; -FURO-145 PO
[2019-11-08 12:17] LABS: BASOPHILS # (AUTO) 0.1 /CMM (0.0-0.2); BASOPHILS % (AUTO) 1.2 % (0.0-2.0); EOSINOPHILS % (AUTO) 1.7 % (0.0-6.0); HEMATOCRIT 44 % (39-51); HEMOGLOBIN 13.3 g/dL (13.5-17.5); LYMPHOCYTES # (AUTO) 1.1 /CMM (0.8-4.8); MEAN CORPUSCULAR HGB CONC 30 g/dl (31.0-36.0); MEAN CORPUSCULAR VOLUME 80 fL (80-96); MONOCYTES # (AUTO) 0.4 /CMM (0.1-1.30); NEUTROPHILS # (AUTO) 4.4 /CMM (1.8-8.9); NEUTROPHILS % (AUTO) 72.1 % (43.0-81.0); PLATELET COUNT (AUTO) 190 /CMM (150-450); RED BLOOD CELL COUNT(AUTO) 5.52 MIL/uL (4.5-6.0); WHITE BLOOD COUNT (AUTO) 6.1 K/uL (4.3-11.0)
--- NOTE | 2019-11-08 12:30 | NUR ---
patient came in to the er c/o abd pain x 3 days, Hx CHF. On room air, breathing evenly and unlabored. connected to the monitor and pulse ox. kept comfortable, will continue to monitor accordingly.
--- NOTE | 2019-11-08 12:40 | NUR ---
wheeled patient to ct
[2019-11-08 12:44] LABS: CALCIUM, SERUM 9.4 mg/dL (8.5-10.1)
--- NOTE | 2019-11-08 12:46 | NUR ---
patient came back from ct
[2019-11-08 12:50] LABS: ALBUMIN 3.3 g/dL (3.4-5.0); BILIRUBIN,DIRECT 0.5 mg/dL (0.0-0.2); BILIRUBIN,TOTAL 1.3 mg/dL (0.2-1.0); TOTAL PROTEIN, SERUM 7.7 g/dL (6.4-8.2)
[2019-11-08] MEDS ORDERED: FUROSEMIDE 40 MG/4 ML VIAL IV ONE (13:00)
[2019-11-08] MEDS ORDERED: FUROSEMIDE 40 MG/4 ML VIAL ONE (13:14)
[2019-11-08] MEDS ORDERED: HYDROMORPHONE 1 MG/1 ML DISP.SYRIN ONE (13:27)
[2019-11-08] MEDS ORDERED: HYDROMORPHONE 1 MG/1 ML DISP.SYRIN IV ONE (13:30)
--- NOTE | 2019-11-08 13:33 | NUR ---
MEDICATED FOR PAIN PER ERMD ORDER, PT CHRISTINA WELL.
[2019-11-08 14:22] VITALS: BP 134/86
--- NOTE | 2019-11-08 14:22 | NUR ---
Patient discharged to home in stable condition. Written and verbal after care instructions given. Patient verbalizes understanding of instruction. IV removed. Catheter intact and site benign. Pressure and 4x4 applied to site. No bleeding noted.
== END 2019-11-08 14:23 | disposition home or self-care (01) ==
LOC: ER 11:53
DX: I13.0 Hypertensive heart and chronic kidney disease with heart failure and stage 1 through stage 4 chronic kidney disease, or unspecified chronic kidney disease (principal); N18.9 Chronic kidney disease, unspecified; R18.8 Other ascites; I48.91 Unspecified atrial fibrillation; Z87.442 Personal history of urinary calculi; Z98.890 Other specified postprocedural states; Z88.0 Allergy status to penicillin; Z60.2 Problems related to living alone; Z79.899 Other long term (current) drug therapy
CPT/HCPCS: 36415; 71045; 74176; 80048; 80076; 84484; 85025; 93005 ×2; 96374; 96375; 99285; J1170; J1940